=== PATIENT | male | born 1945 | race Caucasian/White ===

== ENCOUNTER → 2016-10-06 | Outpatient (CLI) | payer MEDICARE ==
[~2016-10-06] MED LIST: /ADVA50050 INH; /TAMS4CA PO; ACET65TA PO; ALLO300T; ALLO300T PO; AMLO10TA2 PO; ASPI325T; ATEN50TA2; ATEN50TA2 PO; COLA100C2; COLA100C2 PO; COZA100T2 PO; DIOV160T5; DIOV80TA PO; ECOT325T5 PO; FENO160T10 PO; FISH1000 PO; GEMF600T PO; GLYB2.5T6; GLYB2.5T6 PO; HYDR25TA6; HYDROCODONE; LEVIMIR FLEX PEN SC; LIPI10TA; MULTIVIT PO; PERC7.5T8 PO; PIOG15TA2 PO; SIMV40TA2 PO; SING10TA31; SING10TA31 PO; THERGRAN; VICODINES TAB; VITA10002 PO; VITAMIN D PO
[2016-10-06 07:54] LABS: MEAN CORPUSCULAR HEMOGLOBIN 28.5 pg (27.0-33.0); MEAN CORPUSCULAR HGB CONC 32.7 g/dl (32.0-36.5); MEAN CORPUSCULAR VOLUME 87.4 fl (80.0-96.0); RED CELL DISTRIBUTION WIDTH 14.4 % (11.5-14.5); WHITE BLOOD COUNT 7.4 K/mm3 (4.0-10.0)
[2016-10-06 08:11] LABS: ALBUMIN 3.7 GM/DL (3.2-5.2); ALBUMIN/GLOBULIN RATIO 1.54 (1.00-1.93); BILIRUBIN,TOTAL 0.3 MG/DL (0.2-1.0); CREATININE FOR GFR 2.04 MG/DL (0.70-1.30); GLOMERULAR FILTRATION RATE 34.4 (>42); POTASSIUM SERUM 4.4 MEQ/L (3.5-5.1); TOTAL PROTEIN 6.1 GM/DL (6.4-8.2)
== END ==
LOC: M LAB 06:35
PROVIDERS: ATTEND Family Medicine
DX: I10 Essential (primary) hypertension (principal); E11.9 Type 2 diabetes mellitus without complications; R53.83 Other fatigue

== ENCOUNTER → 2017-01-29 | Outpatient (CLI) | payer MEDICARE ==
--- NOTE | 2017-01-29 12:03 | REP ---
RENAL AND BLADDER ULTRASOUND: Real-time sonographic evaluation of the left kidney performed in this patient who has had a prior right nephrectomy. Left kidney measures 14.0 x 5.5 x 7.1 cm. There is no hydronephrosis. No renal mass is seen. Urinary bladder is mildly distended and grossly unremarkable. Prostate measures 5.7 x 3.8 x 5.3 cm. IMPRESSION: Unremarkable appearance of left kidney status post right nephrectomy. Signed by Cal Pereyra MD 01/29/2017 03:30 P
== END ==
LOC: M RAD 10:06
PROVIDERS: ATTEND Internal Medicine Nephrology
DX: Z90.5 Acquired absence of kidney (principal); N18.4 Chronic kidney disease, stage 4 (severe)

== ENCOUNTER → 2017-02-25 | Outpatient (REF) | payer MEDICARE | LOC: M LAB REF 12:58 | PROVIDERS: ATTEND Internal Medicine Nephrology | DX: R80.1 Persistent proteinuria, unspecified (principal) ==

== ENCOUNTER → 2017-04-20 | Outpatient (CLI) | payer MEDICARE ==
--- NOTE | 2017-04-20 10:45 | REP ---
Chest two views HISTORY: COPD Comparison: 12/05/2015 The lungs are clear. The heart is normal in size. The pulmonary vasculature is normal in appearance. Degenerative change is present in the thoracic spine. IMPRESSION: No acute disease. Signed by Saman Champion MD 04/20/2017 10:36 A
== END ==
LOC: M RAD 09:27
PROVIDERS: ATTEND Family Medicine
DX: J44.9 Chronic obstructive pulmonary disease, unspecified (principal); J18.9 Pneumonia, unspecified organism

== ENCOUNTER 2017-06-06 14:14 | Emergency (ER) | payer MEDICARE ==
[~2017-06-06] VITALS: Ht 182.9 cm; Wt 118.2 kg
[2017-06-06 14:43] LABS: BASO % 0.2 % (0.0-1.0); EOS # 0.3 10^3/uL (0.0-0.50); EOS % 3.9 % (0.0-3.0); IMMATURE GRANULOCYTE % 0.5 % (0-0); LYMPH # 1.2 10^3/uL (1.5-4.5); LYMPH % 14.3 % (24.0-44.0); MEAN CORPUSCULAR HEMOGLOBIN 28.9 pg (27.0-33.0); MEAN CORPUSCULAR HGB CONC 32.9 g/dl (32.0-36.5); MEAN CORPUSCULAR VOLUME 87.9 fl (80.0-96.0); MONO # 0.6 10^3/uL (0.0-0.8); NEUTROPHILS % 74.1 % (36.0-66.0); PLATELET COUNT, AUTOMATED 202 10^3/uL (150-450); RED CELL DISTRIBUTION WIDTH 13.7 % (11.5-14.5); WHITE BLOOD COUNT 8.1 10^3/uL (4.0-10.0)
[2017-06-06 14:59] LABS: INR 0.91
[2017-06-06 15:10] LABS: ALBUMIN 3.3 GM/DL (3.2-5.2); ALBUMIN/GLOBULIN RATIO 1.27 (1.00-1.93); ALKALINE PHOSPHATASE 82 U/L (45-117); ALT/SGPT 25 U/L (12-78); ANION GAP 9 MEQ/L (8-16); AST/SGOT 26 U/L (7-37); BILIRUBIN,DIRECT < 0.1 MG/DL (0.0-0.2); BILIRUBIN,TOTAL 0.2 MG/DL (0.2-1.0); BLOOD UREA NITROGEN 40 MG/DL (7-18); CALCIUM LEVEL 8.6 MG/DL (8.8-10.2); CARBON DIOXIDE LEVEL 23 MEQ/L (21-32); CHLORIDE LEVEL 111 MEQ/L (98-107); CREATININE FOR GFR 2.46 MG/DL (0.70-1.30); GLOMERULAR FILTRATION RATE 27.8 (>42); GLUCOSE, FASTING 230 MG/DL (83-110); POTASSIUM SERUM 4.6 MEQ/L (3.5-5.1); SODIUM LEVEL 143 MEQ/L (136-145); TOTAL PROTEIN 5.9 GM/DL (6.4-8.2)
--- NOTE | 2017-06-06 15:11 | REP ---
Chest one-view HISTORY: Chest pain Comparison: 04/20/2017 The lungs are clear. The heart is normal in size. The pulmonary vasculature is normal in appearance. Impression: No acute disease. Signed by Saman Champion MD 06/06/2017 03:03 P
--- NOTE | 2017-06-06 18:13 | ECGEPIP ---
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
[2017-06-06 22:35] VITALS: BP 148/76
--- NOTE | 2017-06-07 09:31 | ECGEPIP ---
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
== END 2017-06-06 22:51 | disposition home or self-care (01) ==
LOC: M ED 14:14
DX: R07.89 Other chest pain (principal); I44.0 Atrioventricular block, first degree; R94.31 Abnormal electrocardiogram [ECG] [EKG]; E11.9 Type 2 diabetes mellitus without complications; I10 Essential (primary) hypertension; N28.9 Disorder of kidney and ureter, unspecified; Z95.5 Presence of coronary angioplasty implant and graft; F17.200 Nicotine dependence, unspecified, uncomplicated; Z79.899 Other long term (current) drug therapy; Z88.8 Allergy status to other drugs, medicaments and biological substances

== ENCOUNTER → 2017-09-30 | Outpatient (CLI) | payer MEDICARE ==
[2017-09-30 06:58] LABS: HEMATOCRIT 36.7 % (42.0-52.0); HEMOGLOBIN 11.9 g/dl (14.0-18.0); MEAN CORPUSCULAR HEMOGLOBIN 28.5 pg (27.0-33.0); MEAN CORPUSCULAR HGB CONC 32.4 g/dl (32.0-36.5); PLATELET COUNT, AUTOMATED 188 10^3/uL (150-450); RED BLOOD COUNT 4.17 10^6/uL (4.30-6.10); RED CELL DISTRIBUTION WIDTH 14.2 % (11.5-14.5); WHITE BLOOD COUNT 8.4 10^3/uL (4.0-10.0)
[2017-09-30 07:10] LABS: ESTIMATED AVERAGE GLUCOSE 232 MG/DL (60-110); HEMOGLOBIN A1c 9.7 %
[2017-09-30 07:32] LABS: ALBUMIN 3.3 GM/DL (3.2-5.2); ALBUMIN/GLOBULIN RATIO 1.27 (1.00-1.93); ALKALINE PHOSPHATASE 62 U/L (45-117); ALT/SGPT 21 U/L (12-78); ANION GAP 6 MEQ/L (8-16); AST/SGOT 24 U/L (7-37); BILIRUBIN,TOTAL 0.5 MG/DL (0.2-1.0); BLOOD UREA NITROGEN 37 MG/DL (7-18); CALCIUM LEVEL 8.7 MG/DL (8.8-10.2); CARBON DIOXIDE LEVEL 24 MEQ/L (21-32); CHLORIDE LEVEL 114 MEQ/L (98-107); CHOLESTEROL LEVEL 150 MG/DL (<200); CHOLESTEROL RISK RATIO 4.687 (<5); CREATININE FOR GFR 2.26 MG/DL (0.70-1.30); GLOMERULAR FILTRATION RATE 30.5 (>42); GLUCOSE, FASTING 121 MG/DL (70-100); HDL CHOLESTEROL 32 MG/DL (>40); IRON (FE) 52 UG/DL (65-175); LDL CHOLESTEROL 69.6 MG/DL (<100); NON-HDL-C 118 MG/DL; PERCENT SATURATION 15.3 % (19.7-50.0); POTASSIUM SERUM 4.6 MEQ/L (3.5-5.1); PROSTATIC SPECIFIC AG MONITOR 3.26 NG/ML (< 4.0); SODIUM LEVEL 144 MEQ/L (136-145); TOTAL IRON BINDING CAPACITY 339 UG/DL (250-450); TOTAL PROTEIN 5.9 GM/DL (6.4-8.2); TRIGLYCERIDES LEVEL 242 MG/DL (<150)
[2017-09-30 10:21] LABS: TESTOSTERONE 254 NG/DL (241-827)
== END ==
LOC: M LAB 06:00
DX: I10 Essential (primary) hypertension (principal); Z79.899 Other long term (current) drug therapy
CPT/HCPCS: 83550

== ENCOUNTER 2017-12-15 15:03 | Emergency (ER) | payer OTHER, MEDICARE ==
[2017-12-15 16:49] LABS: BASO % 0.3 % (0.0-1.0); EOS # 0.5 10^3/uL (0.0-0.50); EOS % 4.1 % (0.0-3.0); HEMATOCRIT 40.6 % (42.0-52.0); HEMOGLOBIN 12.9 g/dl (13.5-17.5); IMMATURE GRANULOCYTE % 0.4 % (0-3.0); LYMPH # 1.2 10^3/uL (1.5-4.5); LYMPH % 10.5 % (24.0-44.0); MEAN CORPUSCULAR HEMOGLOBIN 28.5 pg (27.0-33.0); MEAN CORPUSCULAR HGB CONC 31.8 g/dl (32.0-36.5); MEAN CORPUSCULAR VOLUME 89.6 fl (80.0-96.0); MONO # 0.9 10^3/uL (0.0-0.8); MONO % 7.8 % (0.0-5.0); NEUTROPHILS # 8.7 10^3/uL (1.8-7.7); NEUTROPHILS % 76.9 % (36.0-66.0); PLATELET COUNT, AUTOMATED 214 10^3/uL (150-450); RED BLOOD COUNT 4.53 10^6/uL (4.30-6.10); RED CELL DISTRIBUTION WIDTH 14.4 % (11.5-14.5); WHITE BLOOD COUNT 11.3 10^3/uL (4.0-10.0)
[2017-12-15 16:52] LABS: KETONE, URINE AUTO RFX NEGATIVE (NEGATIVE); LEUKOCYTE ESTERASE UR AUTO RFX NEGATIVE (NEGATIVE); NITRITE, URINE AUTO RFX NEGATIVE (NEGATIVE); RBC, URINE AUTO RFX 1 /HPF (0-3); SPECIFIC GRAVITY UR AUTO RFX 1.011 (1.002-1.035); SQUAM EPITHELIAL CELL UR AURFX 0 /HPF (0-6); WBC, URINE AUTO RFX 2 /HPF (0-3)
[2017-12-15] MEDS: BACLOFEN 10 MG TAB PO (16:57)
[2017-12-15] MEDS: MORPHINE 4 MG/ML 1ML VIAL/SYRINGE (J2270) IV (16:58)
[2017-12-15] MEDS ORDERED: ISOVUE-370 76% 100ML VIAL (Q9967) As Ordered (17:13)
[2017-12-15 17:14] LABS: ALBUMIN 3.9 GM/DL (3.2-5.2); ALBUMIN/GLOBULIN RATIO 1.39 (1.00-1.93); ALKALINE PHOSPHATASE 57 U/L (45-117); ALT/SGPT 24 U/L (12-78); ANION GAP 8 MEQ/L (8-16); AST/SGOT 26 U/L (7-37); BILIRUBIN,DIRECT 0.1 MG/DL (0.0-0.2); BILIRUBIN,TOTAL 0.3 MG/DL (0.2-1.0); BLOOD UREA NITROGEN 53 MG/DL (7-18); CALCIUM LEVEL 9.3 MG/DL (8.8-10.2); CARBON DIOXIDE LEVEL 28 MEQ/L (21-32); CHLORIDE LEVEL 108 MEQ/L (98-107); CREATININE FOR GFR 3.42 MG/DL (0.70-1.30); GLOMERULAR FILTRATION RATE 18.9 (>42); GLUCOSE, FASTING 161 MG/DL (70-100); LIPASE 350 U/L (73-393); POTASSIUM SERUM 4.8 MEQ/L (3.5-5.1); SODIUM LEVEL 144 MEQ/L (136-145); TOTAL PROTEIN 6.7 GM/DL (6.4-8.2)
== END 2017-12-15 19:48 | disposition home or self-care (01) ==
LOC: M ED 15:03
DX: N17.9 Acute kidney failure, unspecified (principal); M54.5 Low back pain; G89.29 Other chronic pain; E11.9 Type 2 diabetes mellitus without complications; J44.9 Chronic obstructive pulmonary disease, unspecified; I25.2 Old myocardial infarction; I10 Essential (primary) hypertension; E78.5 Hyperlipidemia, unspecified; F17.210 Nicotine dependence, cigarettes, uncomplicated; Z79.01 Long term (current) use of anticoagulants; Z95.5 Presence of coronary angioplasty implant and graft; Z88.8 Allergy status to other drugs, medicaments and biological substances; Z98.890 Other specified postprocedural states; Z90.89 Acquired absence of other organs; Z79.899 Other long term (current) drug therapy
CPT/HCPCS: J2270

== ENCOUNTER → 2017-12-21 | Outpatient (CLI) | payer MEDICARE | LOC: M RAD 09:22 | DX: M54.30 Sciatica, unspecified side (principal) | CPT/HCPCS: 72110 ==

== ENCOUNTER → 2018-06-30 | Outpatient (CLI) | payer MEDICARE ==
[~2018-06-30] MED LIST changes: +BACL10TA2 PO; +CLOP75TA2 PO
[2018-06-30 07:00] LABS: HEMATOCRIT 39.5 % (42.0-52.0); HEMOGLOBIN 12.6 g/dl (13.5-17.5); MEAN CORPUSCULAR HEMOGLOBIN 28.6 pg (27.0-33.0); MEAN CORPUSCULAR HGB CONC 31.9 g/dl (32.0-36.5); MEAN CORPUSCULAR VOLUME 89.8 fl (80.0-96.0); PLATELET COUNT, AUTOMATED 185 10^3/uL (150-450); WHITE BLOOD COUNT 7.5 10^3/uL (4.0-10.0)
[2018-06-30 07:29] LABS: ALBUMIN 3.6 GM/DL (3.2-5.2); ALT/SGPT 23 U/L (12-78); BILIRUBIN,TOTAL 0.4 MG/DL (0.2-1.0); BLOOD UREA NITROGEN 39 MG/DL (7-18); CARBON DIOXIDE LEVEL 24 MEQ/L (21-32); CHLORIDE LEVEL 110 MEQ/L (98-107); CHOLESTEROL LEVEL 173 MG/DL (<200); CHOLESTEROL RISK RATIO 6.653 (<5); GLOMERULAR FILTRATION RATE 28.4 (>42); GLUCOSE, FASTING 201 MG/DL (70-100); HDL CHOLESTEROL 26 MG/DL (>40); NON-HDL-C 147 MG/DL; POTASSIUM SERUM 4.2 MEQ/L (3.5-5.1); PROSTATIC SPECIFIC AG MONITOR 4.09 NG/ML (< 4.00); SODIUM LEVEL 144 MEQ/L (136-145); TOTAL PROTEIN 6.3 GM/DL (6.4-8.2); TRIGLYCERIDES LEVEL 446 MG/DL (<150)
[2018-06-30 07:34] LABS: TESTOSTERONE 219 NG/DL (241-827); TOTAL 25(OH) VITAMIN D 22.7 NG/ML (30.0-100.0)
== END ==
LOC: M LAB 06:17
PROVIDERS: ATTEND Family Medicine
DX: I10 Essential (primary) hypertension (principal); E11.9 Type 2 diabetes mellitus without complications; R53.83 Other fatigue; E03.9 Hypothyroidism, unspecified

== ENCOUNTER 2019-03-30 08:01 | Day surgery (SDC) | payer MEDICARE ==
[~2019-03-30] VITALS: Ht 185.4 cm; Wt 106.6 kg
[~2019-03-30 08:01] MED LIST changes: -/ADVA50050 INH; -/TAMS4CA PO; +ADVA1AER2 INH; +ALBU83IN INH; +ALLO10TA PO; +ALPH600C PO; +AMLO10TA5 PO; +BASA100I SC; +COLA100C5 PO; +DOXA1TAB41 PO; +ECOT81TA5 PO; +FENO145T13 PO; +FERR325T20 PO; +FLOM0.4C39 PO; +GLYB5TA PO; +NITR0.4S14 SL; +NOVOINJ3 SC; +NS 1,000 ML IV ONE; +PROPOFOL 200 MG/20 ML VIAL As Ordered ONE; +PURE500C5 PO; +ROSU40TA4 PO; +SING5CHW23 PO; +SPIR1CAP INH; +SYMB16INH INH; +TIZA4CAP6 PO; +TORS20TA2 PO; +VITA-172 PO; +ZINC220CA PO
[2019-03-30] MEDS ORDERED: LIDOCAINE 2% INJ 100 MG/5 ML SDV (FOR ANES.) As Ordered ONE (08:42)
[2019-03-30] MEDS ORDERED: D5W/0.2% SODIUM CHLORIDE 1,000 ML IV ONE (09:00)
[2019-03-30] MEDS ORDERED: PROPOFOL 200 MG/20 ML VIAL As Ordered ONE ×3 (09:42→10:24)
--- NOTE | 2019-03-30 10:37 | ROOR ---
Patient Name: Tristen Roche Procedure Date: 03/30/2019 9:29 AM Date of : 1945 Age: 73 Room: [facility] Gender: Male Note Status: Finalized Procedure: Colonoscopy Indications: Screening for colorectal malignant neoplasm, Last colonoscopy: June 2008 Providers: Quinton Davila MD Referring MD: JEREMY TOURE MD Requesting Provider: Medicines: Monitored Anesthesia Care Complications: No immediate complications. Procedure: Pre-Anesthesia Assessment: - Prior to the procedure, a History and Physical was performed, and patient medications and allergies were reviewed. The patient is competent. The risks and benefits of the procedure and the sedation options and risks were discussed with the patient. All questions were answered and informed consent was obtained. Patient identification and proposed procedure were verified by the physician, the nurse and the anesthesiologist in the procedure room. Mental Status Examination: alert and oriented. CV Examination: regular rate and rhythm. Prophylactic Antibiotics: The patient does not require prophylactic antibiotics. Prior Anticoagulants: The patient has taken no previous anticoagulant or antiplatelet agents. ASA Grade Assessment: III - A patient with severe systemic disease. After reviewing the risks and benefits, the patient was deemed in satisfactory condition to undergo the procedure. The anesthesia plan was to use monitored anesthesia care (MAC). Immediately prior to administration of medications, the patient was re-assessed for adequacy to receive sedatives. The heart rate, respiratory rate, oxygen saturations, blood pressure, adequacy of pulmonary ventilation, and response to care were monitored throughout the procedure. The physical status of the patient was re-assessed after the procedure. The Colonoscope was introduced through the anus and advanced to the cecum, identified by appendiceal orifice and ileocecal valve. The colonoscopy was somewhat difficult due to a tortuous colon. The patient tolerated the procedure well. The quality of the bowel preparation was good. Findings: The perianal exam findings include non-thrombosed external hemorrhoids. Two sessile polyps were found in the cecum. The polyps were small in size. These polyps were removed with a jumbo cold forceps. Resection and retrieval were complete. Three sessile polyps were found in the hepatic flexure. The polyps were 4 to 7 mm in size. These polyps were removed with a hot snare. Resection and retrieval were complete. Seven sessile polyps were found in the transverse colon. The polyps were 4 to 7 mm in size. These polyps were removed with a hot snare. Resection and retrieval were complete. Impression: - Non-thrombosed external hemorrhoids found on perianal exam. - Two small polyps in the cecum, removed with a jumbo cold forceps. Resected and retrieved. - Three 4 to 7 mm polyps at the hepatic flexure, removed with a hot snare. Resected and retrieved. - Seven 4 to 7 mm polyps in the transverse colon, removed with a hot snare. Resected and retrieved. Recommendation: - Discharge patient to home. - Resume previous diet. - Continue present medications. - Await pathology results. - Repeat colonoscopy in 3 years for surveillance. Quinton Davila MD Quinton Davila MD 03/30/2019 10:37:11 AM Electronically signed by Quinton Davila MD Number of Addenda: 0 Note Initiated On: 03/30/2019 9:29 AM Estimated Blood Loss: Estimated blood loss: none.
[2019-03-30 10:50] VITALS: BP 136/70
== END 2019-03-30 11:12 | disposition home or self-care (01) ==
LOC: M OPP 08:01
PROVIDERS: ATTEND Surgery
DX: Z12.11 Encounter for screening for malignant neoplasm of colon (principal); K64.4 Residual hemorrhoidal skin tags; D12.0 Benign neoplasm of cecum; D12.3 Benign neoplasm of transverse colon; I25.2 Old myocardial infarction; I25.10 Atherosclerotic heart disease of native coronary artery without angina pectoris; G47.30 Sleep apnea, unspecified; N18.4 Chronic kidney disease, stage 4 (severe); F17.210 Nicotine dependence, cigarettes, uncomplicated; Z79.4 Long term (current) use of insulin; Z79.899 Other long term (current) drug therapy; Z88.1 Allergy status to other antibiotic agents; Z88.8 Allergy status to other drugs, medicaments and biological substances; Z91.040 Latex allergy status; Z85.528 Personal history of other malignant neoplasm of kidney; Z95.5 Presence of coronary angioplasty implant and graft

== ENCOUNTER → 2019-06-09 | Outpatient (CLI) | payer MEDICARE ==
[~2019-06-09] MED LIST changes: -NS 1,000 ML IV ONE; -PROPOFOL 200 MG/20 ML VIAL As Ordered ONE
--- NOTE | 2019-06-09 09:17 | REP ---
BILATERAL UPPER EXTREMITY DUPLEX DOPPLER ULTRASOUND ARTERIES AND VEINS FOR ARTERIOVENOUS FISTULA MAPPING: Real-time ultrasound evaluation and duplex Doppler interrogation of bilateral upper extremity arterial and venous systems is performed for arteriovenous fistula mapping. No deep vein thrombosis is seen bilaterally. On the right, the basilic vein measures 5 mm throughout the level of the humerus and 3 mm throughout the forearm. Median cubital vein measures 4 mm. Right cephalic vein measures 5 mm at the upper humerus, 4 mm at the lower humerus, and 3 mm throughout the forearm. Right upper extremity arterial structures demonstrate normal flow velocities with triphasic waveforms. Right axillary artery measures 8 mm, brachial artery, 6 mm, and radial and ulnar arteries 3 mm. On the left, basilic vein measures 4 mm at the upper humerus, 3 mm at the lower humerus, and 2 mm throughout the forearm. Medial cubital vein measures 3 mm. The left cephalic vein measures 3 mm throughout the level of the humerus as well as in the upper forearm and 2 mm in the lower forearm and wrist. Doppler extremity arterial structures demonstrate normal flow velocities and triphasic waveforms. Left axillary artery measures 8 mm, brachial artery 5 mm and radial and ulnar arteries 2 mm. Electronically Signed by Cal Pereyra MD 06/09/2019 03:50 P
== END ==
LOC: M RAD 07:28
PROVIDERS: ATTEND Internal Medicine Nephrology
DX: N18.4 Chronic kidney disease, stage 4 (severe) (principal)

== ENCOUNTER → 2019-07-19 | Outpatient (CLI) | payer MEDICARE ==
[~2019-07-19] MED LIST changes: -FENO145T13 PO; +FENO145T7 PO; +ZYLO300T6 PO
[2019-07-19 10:16] LABS: ALBUMIN 3.9 GM/DL (3.2-5.2); ALT/SGPT 49 U/L (12-78); BILIRUBIN,DIRECT 0.2 MG/DL (0.0-0.2); BILIRUBIN,TOTAL 0.4 MG/DL (0.2-1.0); CHOLESTEROL LEVEL 146 MG/DL (<200); CHOLESTEROL RISK RATIO 6.636 (<5); HDL CHOLESTEROL 22 MG/DL (>40); NON-HDL-C 124 MG/DL; TOTAL PROTEIN 6.7 GM/DL (6.4-8.2); TRIGLYCERIDES LEVEL 489 MG/DL (<150)
== END ==
LOC: M LAB 09:04
PROVIDERS: ATTEND Physician Assistant
DX: E78.2 Mixed hyperlipidemia (principal)

== ENCOUNTER 2019-07-26 09:56 | Day surgery (SDC) | payer MEDICARE ==
--- NOTE | 2019-07-18 18:29 | HPE ---
DATE OF SCHEDULED ADMISSION: 07/26/2019 This is a preoperative history and physical for surgery planned for 07/26/2019. CHIEF COMPLAINT: Dialysis access. HISTORY OF THE PRESENT ILLNESS: Mr. Roche is a very pleasant 74-year-old patient with stage IV renal insufficiency, not yet on dialysis. Dr. Batres has asked that we discuss options for dialysis access plan. The patient underwent vein mapping that revealed left upper extremity veins too small for dialysis access. On the right, the patient has a suitable cephalic or basilic vein in the upper arm. The cephalic vein measures 4.2 mm and 4.8 mm in the upper arm, the basilic vein measures 5.2 mm and 5.4 mm in the upper arm. The median cubital vein is 3.8 mm. The arterial structures have excellent flow with triphasic flow in the brachial artery, which is 6.2 mm. These are all good size with good flow for dialysis access creation. He has a bounding pulse at the radial artery on the right, and a triphasic signal over the palmar arch. The patient has a scar on his right shoulder and says that he has had shoulder surgery. Therefore, I examined his cephalic vein with ultrasound in the clinic and found that it is in continuation across to the chest, and I do not see that it has been transected with shoulder surgery. He is right-handed but I feel he will have a more successful fistula with access in the right upper extremity. I gave him a squeeze ball today to start working on his strength in the right upper extremity, and he should use the squeeze ball as much as he can remember during the day to improve his circulation. The risks, benefits and alternatives to right brachiocephalic arteriovenous (AV) fistula creation were explained to the patient, and he is agreeable to proceed. Informed consent was obtained. We also had a lengthy discussion about smoking cessation, and we strongly encouraged the patient to quit smoking. MEDICATIONS: - albuterol as needed - allopurinol 300 mg daily - alpha lipoic acid 200 mg daily - aspirin 81 mg daily - atenolol 50 mg daily - Colace 100 mg daily - doxazosin 2 mg daily - fenofibrate 160 mg twice a day - FeroSul 325 mg twice a day - glyburide 5 mg three tablets daily - montelukast 10 mg daily - nitroglycerin 0.4 mg sublingual as needed - Norvasc 10 mg daily - Plavix 75 mg daily - rosuvastatin 40 mg daily - Spiriva 18 mcg daily - Symbicort two puffs twice a day - tamsulosin 0.4 mg twice a day - torsemide 20 mg daily - vitamin B12 500 mcg daily - vitamin C 500 mg daily - vitamin D 1000 units daily - zinc sulfate 220 mg daily ALLERGIES: FLEXERIL and BACLOFEN. PAST MEDICAL HISTORY: Hypertension. Rlh-pdugnax-mqoxchyxr diabetes. History of myocardial infarction ([place]). Hypercholesterolemia. Kidney cancer on the right. Renal disease, stage IV insufficiency. Heart disease. SURGICAL HISTORY: Bilateral shoulder surgery. Hemorrhoidectomy. Right nephrectomy. Cardiac stents. FAMILY HISTORY: Diabetes, hypertension, heart disease. SOCIAL HISTORY: The patient has a 30 pack-year history of tobacco. Denies illicit drug use. REVIEW OF SYSTEMS: Constitutional: Denies fevers, chills, weight loss or weight gain. Eyes: Denies new vision changes. Ear, Nose, Mouth and Throat: Denies hearing loss. Denies congestion. Denies dysphagia. Cardiovascular: Denies chest pain and palpitations. Respiratory: Reports shortness of breath but denies cough and hemoptysis. Gastrointestinal (GI): Denies abdominal pain, constipation, diarrhea, nausea or vomiting. Musculoskeletal: Reports gout but denies myalgia, pain and trouble walking. Skin: Denies skin cancer, rash and wound. Neurologic: Denies focal deficits, headache or seizures. Psychiatric: Denies anxiety or depression. Endocrine: Reports diabetes but denies hyperthyroidism, hypothyroidism. Hematology: Denies anemia or excessive bruising. PHYSICAL EXAMINATION: The patient is afebrile. Vital signs are stable, mildly hypertensive at 160/84. Constitutional: He appears medically stable with no signs of distress. Head and Face: Normal on inspection. Ears, Nose, Mouth and Throat: Tympanic membranes intact. External nose within normal limits. Neck: Supple. No carotid bruits. Respiratory: No wheezing, clear to auscultation bilaterally. Cardiovascular: Regular rate and rhythm. Abdomen: Bowel sounds are positive. Abdomen is soft, nontender, nondistended. Lymph: No palpable lymphadenopathy. Musculoskeletal: His gait is steady. Distal pulses 2+ dorsalis pedis (DP), posterior tibial (PT). Right radial pulse is 2+ and bounding, triphasic signal Doppler over the palmar arch. Brachial pulse is 2+ and bounding. There is a scar noted on the patient's right shoulder, but on ultrasound, the cephalic vein appears to be intact, going towards the subclavian vein junction. Skin: No rashes or lesions. Neurologic: Alert and oriented times three. Moves all extremities equally. No focal neurologic deficits noted. Psychiatric: Pleasant and cooperative. IMAGING: Patient's vein mapping was reviewed with him in the clinic. Please see history of the present illness for relevant interpretation. ASSESSMENT AND PLAN: This is a very pleasant 74-year-old patient with stage IV renal insufficiency, not yet on dialysis but progressing to stage V and requiring new AV access creation for imminent dialysis use. 1. Plan for right brachiocephalic AV fistula creation. Hold Plavix 3 days prior to the procedure, and we will restart it directly after. Do not hold aspirin. 2. Continue to use squeeze ball daily to improve circulation in the right upper ext before and after surgery. 3. We strongly encourage the patient to quit smoking. We appreciate the opportunity to participate in the care of this patient.
[~2019-07-26] VITALS: Ht 177.8 cm; Wt 107.4 kg
[~2019-07-26 09:56] MED LIST changes: +D5W/0.2% SODIUM CHLORIDE 1,000 ML IV ONE; +ceFAZolin SOD 2 GM in IV 1 EA IV ONE
[2019-07-26] MEDS ORDERED: EPINEPHrine INJ 1 MG/ML 1ML VIAL ONE (09:57)
[2019-07-26] MEDS ORDERED: ROPIvacaine 0.5% 30 ML INJECTION (J2795 PER 1MG) ONE (09:57)
[2019-07-26] MEDS ORDERED: HEPARIN SOD (PORCINE) 5000 UNITS/ML VIAL As Ordered ONE (09:58)
[2019-07-26 11:03] LABS: ALBUMIN 3.9 GM/DL (3.2-5.2); BILIRUBIN,TOTAL 0.5 MG/DL (0.2-1.0); CALCIUM LEVEL 9.2 MG/DL (8.8-10.2); CREATININE FOR GFR 3.53 MG/DL (0.70-1.30); GLOMERULAR FILTRATION RATE 18.1 (>42); POTASSIUM SERUM 4.3 MEQ/L (3.5-5.1)
[2019-07-26] MEDS ORDERED: MIDAZOLAM INJ 2 MG/2 ML VIAL (J2250) As Ordered ONE ×2 (11:30→12:12)
[2019-07-26] MEDS ORDERED: fentaNYL 100 MCG/2 ML INJECTION (J3010) As Ordered ONE ×2 (11:30→12:12)
[2019-07-26] MEDS ORDERED: propofoL 500 MG/50 ML VIAL As Ordered ONE (11:31)
[2019-07-26] MEDS ORDERED: LIDOCAINE 2% INJ 100 MG/5 ML SDV (FOR ANES.) As Ordered ONE (11:34)
[2019-07-26] MEDS ORDERED: ONDANSETRON 4MG/2ML VIAL (J2405) As Ordered ONE (11:35)
[2019-07-26] MEDS ORDERED: DEXTROSE 50% 50 ML SYRINGE As Ordered ONE (12:06)
[2019-07-26] MEDS: fentaNYL 100 MCG/2 ML INJECTION (J3010) IV ONE (12:28)
[2019-07-26] MEDS ORDERED: LIDOCAINE 1% SDV INJ 30 ML VIAL As Ordered ONE (12:29)
[2019-07-26] MEDS ORDERED: MIDAZOLAM INJ 2 MG/2 ML VIAL (J2250) IV ONE (13:00)
[2019-07-26] MEDS ORDERED: KETAMINE HCL 200 MG/20 ML VIAL As Ordered ONE (13:07)
[2019-07-26] MEDS ORDERED: OXYC1TAB23 PO (14:29)
--- NOTE | 2019-07-26 14:34 | ROOPDOC ---
[facility] Report Of Operation Report of Operation DATE OF PROCEDURE: 07/26/19 PREPROCEDURE DIAGNOSES: Renal insufficiency requiring access for future dialysis POSTPROCEDURE DIAGNOSES: Same PROCEDURE: Right brachial cephalic AV Fistula Creation SURGEON: Amber Sneed MD ANESTHESIA: MAC, scalene nerve block, local anesthesia. INDICATION FOR PROCEDURE: Mr. Roche is a very pleasant 74-year-old gentleman not yet on dialysis requires access for eminent dialysis in the future. Risk benefits and alternatives to a right upper extremity brachiocephalic AV fistula creation were discussed with the patient and he is agreeable to proceed. Informed consent was obtained. REPORT OF OPERATION: The patient was brought to the operating room in stable condition after right scalene block was placed by our anesthesia colleagues in preop holding. Monitored anesthesia care and antibiotics were administered without complication. His right upper extremity was prepped and draped in a sterile fashion. A timeout was performed. Local anesthesia was administered to skin and subcutaneous tissue over the brachial artery pulse 1 cm distal to the antecubital crease. A transverse incision was made and carried down to the subcutaneous tissue with Bovie cautery. The basilic and cephalic veins are very large and easily identified. We skeletonized the cephalic vein proximally and distally within the incision and proximal branches were ligated. Distally, there were extensive branches and these were sequentially suture ligated. The median cubital vein was tied off on the cephalic and basilic side, clips were placed and the vein was divided. We then proceeded with dissection down to the brachial artery through the fascia. The artery was skeletonized proximally and distally within the incision and Vesseloops were placed on the brachial artery, the radial artery, and the ulnar artery. The distal cephalic vein was ligated at the sutures and a distal branch point was connected to make a large patch for anastomosis. A bulldog clamp was placed for hemostasis on the vein. We then selected a 4 mm, 4.5 mm, and 5 mm dilator and each were sequentially passed into the vein without difficulty. The vein was then flushed with heparinized saline. We then secured the Vesseloops on the proximal brachial artery, the radial artery and the ulnar artery. A 5 mm arteriotomy was made and the vein was anastomosis to the artery and an end-to-side fashion with a running 6-0 Prolene suture. Before the final sutures are placed, we flushed inflow and outflow arteries and the vein and irrigated with heparinized saline. We placed the final sutures and restore flow through the vein and the inflow artery, and after a few beats of the heart were restored blood flow to the hand. There was a strong radial pulse and a triphasic signal at the palmar arch in the hand was warm and pink. There is a good thrill over the fistula with no signs of outflow obstruction. We irrigated with copious amounts of saline. The deep tissue was approximated with interrupted Vicryl suture. The dermal layer was closed with running Vicryl suture. The skin was closed with a running subcuticular Monocryl suture. Mastisol and Steri-Strips were placed the length of the wound and a dry gauze and Tegaderm was placed as a final dressing. The sling was placed to protect the arm until the nerve block wears off and the patient has resolution of his motor and sensory function back to baseline. He was taken to recovery in stable condition. ESTIMATED BLOOD LOSS: Approximately 10 mL. COMPLICATIONS: None. PLAN: Continue to use squeeze ball to improve RUE circulation. Ok to restart home meds including plavix and anticoagulation. Resume pre-op diet. Continue steri strips for at least 7 days to help with wound healing. Ok to d/c sling when sensory and motor function return to baseline. No driving 5 days. Rx for Percocet sent to [facility] per family request. Follow up in 1-2 weeks to check thrill and incision. AMBER SNEED MD Jul 26, 2019 14:34
[2019-07-26] MEDS ORDERED: ONDANSETRON 4MG/2ML VIAL (J2405) IV PRN (15:00)
[2019-07-26] MEDS ORDERED: NS 1,000 ML IV SCH (15:00)
[2019-07-26] MEDS ORDERED: oxyCODONE 5MG TAB PO PRN (15:00)
[2019-07-26 15:20] VITALS: BP 129/59
[2019-07-26] MEDS ORDERED: DEXTROSE 50% 50 ML SYRINGE IV ONE (18:00)
== END 2019-07-26 15:50 | disposition home or self-care (01) ==
LOC: M SDC 09:56
PROVIDERS: ATTEND Surgery Vascular Surgery
DX: N18.4 Chronic kidney disease, stage 4 (severe) (principal); I12.9 Hypertensive chronic kidney disease with stage 1 through stage 4 chronic kidney disease, or unspecified chronic kidney disease; E11.22 Type 2 diabetes mellitus with diabetic chronic kidney disease; E11.40 Type 2 diabetes mellitus with diabetic neuropathy, unspecified; N25.81 Secondary hyperparathyroidism of renal origin; M1A.30X0 Chronic gout due to renal impairment, unspecified site, without tophus (tophi); I25.2 Old myocardial infarction; E78.00 Pure hypercholesterolemia, unspecified; I25.10 Atherosclerotic heart disease of native coronary artery without angina pectoris; F17.210 Nicotine dependence, cigarettes, uncomplicated; R94.31 Abnormal electrocardiogram [ECG] [EKG]; R12 Heartburn; M12.9 Arthropathy, unspecified; J44.9 Chronic obstructive pulmonary disease, unspecified; R06.83 Snoring; G47.33 Obstructive sleep apnea (adult) (pediatric); N40.0 Benign prostatic hyperplasia without lower urinary tract symptoms; Z79.4 Long term (current) use of insulin; Z79.82 Long term (current) use of aspirin; Z79.899 Other long term (current) drug therapy; Z85.528 Personal history of other malignant neoplasm of kidney; Z88.1 Allergy status to other antibiotic agents; Z88.8 Allergy status to other drugs, medicaments and biological substances; Z90.5 Acquired absence of kidney; Z91.040 Latex allergy status; Z95.5 Presence of coronary angioplasty implant and graft

== ENCOUNTER 2019-12-14 12:28 | Emergency (ER) | payer MEDICARE ==
[~2019-12-14] VITALS: Ht 182.9 cm; Wt 109.1 kg
[~2019-12-14 12:28] MED LIST changes: -D5W/0.2% SODIUM CHLORIDE 1,000 ML IV ONE; +OXYC1TAB23 PO; -ceFAZolin SOD 2 GM in IV 1 EA IV ONE
[2019-12-14 13:15] LABS: BASO % 0.2 % (0.0-1.0); EOS # 0.3 10^3/uL (0.0-0.5); EOS % 3.4 % (0.0-3.0); HEMATOCRIT 30.6 % (42.0-52.0); HEMOGLOBIN 10.2 g/dl (13.5-17.5); LYMPH # 1.3 10^3/uL (1.5-5.0); LYMPH % 15.9 % (24.0-44.0); MEAN CORPUSCULAR HEMOGLOBIN 31.4 pg (27.0-33.0); MEAN CORPUSCULAR HGB CONC 33.3 g/dl (32.0-36.5); MEAN CORPUSCULAR VOLUME 94.2 fl (80.0-96.0); MONO # 0.5 10^3/uL (0.0-0.8); MONO % 6.3 % (0.0-5.0); NEUTROPHILS % 73.8 % (36.0-66.0); PLATELET COUNT, AUTOMATED 166 10^3/uL (150-450); RED BLOOD COUNT 3.25 10^6/uL (4.30-6.10); WHITE BLOOD COUNT 8.1 10^3/uL (4.0-10.0)
[2019-12-14] MEDS ORDERED: ASPIRIN 81 MG CHEW TABLET PO ONE (13:15)
[2019-12-14 13:26] LABS: INR 0.97; PROTHROMBIN TIME 12.6 SECONDS (11.8-14.0)
[2019-12-14 13:52] LABS: ALBUMIN 3.4 GM/DL (3.2-5.2); BILIRUBIN,DIRECT 0.1 MG/DL (0.0-0.2); BILIRUBIN,TOTAL 0.3 MG/DL (0.2-1.0); CALCIUM LEVEL 8.4 MG/DL (8.8-10.2); CK-MB VALUE MASS 3.3 NG/ML (<3.6); CREATININE FOR GFR 4.32 MG/DL (0.70-1.30); GLOMERULAR FILTRATION RATE 14.4 (>42); MB/CK RELATIVE INDEX 2.6 (< OR =4); POTASSIUM SERUM 4.1 MEQ/L (3.5-5.1); THYROID STIMULATING HORMONE 1.56 uIU/ML (0.358-3.740)
[2019-12-14] MEDS ORDERED: BASA100I SC (13:59)
[2019-12-14] MEDS ORDERED: LOSA50TA88 PO (13:59)
[2019-12-14] MEDS ORDERED: DOXA1TAB41 PO (13:59)
[2019-12-14] MEDS ORDERED: ATEN50TA2 PO (13:59)
[2019-12-14] MEDS ORDERED: ROCA0.25 PO (13:59)
[2019-12-14] MEDS ORDERED: SM N PO (13:59)
[2019-12-14] MEDS ORDERED: MELA3TAB49 PO (13:59)
[2019-12-14] MEDS ORDERED: NOVOINJ3 SC (13:59)
[2019-12-14] MEDS: NS 500 ML IV ONE ×2 (14:08→16:08)
--- NOTE | 2019-12-14 15:28 | REP ---
REASON FOR EXAM: Chest pain. COMPARISON: The latest prior 06/06/2017, also portable. The technique utilized in obtaining the radiograph has magnified the cardiac silhouette and accentuated the interstitial markings. Cardiomediastinal silhouette and lung rodriguez are unchanged. No acute patchy parenchymal opacities or pleural effusions have developed. There is mild cardiomegaly accentuated by technique. There is no change in the osseous structures. IMPRESSION: Stable appearing chronic changes. Electronically Signed by Massimo Hunt DO 12/14/2019 05:06 P
[2019-12-14] MEDS ORDERED: NS 1,000 ML IV SCH (16:00)
[2019-12-14] MEDS ORDERED: MONT10TA4 PO (16:17)
[2019-12-14] MEDS ORDERED: LOMO2.5T PO (16:17)
[2019-12-14] MEDS ORDERED: FENO160T10 PO (16:17)
[2019-12-14] MEDS ORDERED: MELA3TAB62 PO (16:17)
[2019-12-14] MEDS ORDERED: VITAD1000T PO (16:17)
--- NOTE | 2019-12-14 16:48 | HPEPDOC ---
[facility] Medical History & Physical Date of Admission Dec 14, 2019 Date of Service: Dec 14, 2019 Primary Care Physician: Karey Carrion Other Provider Attending Physician: VEGA FREED MD History and Physical TIME OF SERVICE 430PM CHIEF COMPLAINT: Chest pain HISTORY OF PRESENT ILLNESS: This is a 74 yr old M who presented w c/o of relapsing and remitting chest pain for 3 weeks. Initially the chest pain felt like GERD but this didn't resolve with rolaids; he had similar heart burn like symptoms when he had his previous heart attacks. Each episode of chest pain lasts less than 30 min. Yesterday while gardening his chest pain was so severe that he had to lie down; as a result his chest pain improved. This morning he also felt dizzy and had to hang on to something to avoid falling down. He denies having shortness of breath. Currently the CP is not present. ROS: negative except as listed in HPI PAST MEDICAL/SURGICAL HISTORY: Chronic CAD (has had 4 MIs w PCI, placement of 8 stents, 2 stents failed) IDDM Chronic HTN Stage V CKD / Hx of Renal cancer s/p right nephrectomy Per pt Unspecified type of CHF ? Denies having CVA or PAD Resection of colon polyps Hemorrhoidectomy Right nephrectomy SOCIAL HISTORY: Current smoker FAMILY HISTORY: Father: had several MIs / of "the bends" Mother and Sister were obese and had CHF ALLERGIES: Please see below. HOME MEDICATIONS: Please see below. PHYSICAL EXAMINATION: Vital Signs Date Time Temp Pulse Resp B/P (MAP) Pulse Ox O2 Delivery O2 Flow Rate FiO2 12/14/19 12:29 97.7 92 20 178/76 (110) 98 Room Air GENERAL APPEARANCE: NAD HEENT: NCAT/MMM&P CARDIOVASCULAR: RRR/NMRG / no CP w palpation of the chest LUNGS: CTAB on RA MUSCULOSKELETAL: PRABHU x 4 extremities NEUROLOGICAL: CN 2-12 intact / speech not dysarthric PSYCHIATRIC: A&O x 3 / able to understand and follow all commands LABORATORY DATA: 12/14/19 12:54 12/14/19 12:52: POC Troponin I (Misc) 0.43H 12/14/19 12:54: Immature Granulocyte % (Auto) 0.4, Neutrophils (%) (Auto) 73.8H, Lymphocytes (%) (Auto) 15.9L, Monocytes (%) (Auto) 6.3H, Eosinophils (%) (Auto) 3.4H, Basophils (%) (Auto) 0.2, Neutrophils # (Auto) 6.0, Lymphocytes # (Auto) 1.3L, Monocytes # (Auto) 0.5, Eosinophils # (Auto) 0.3, Basophils # (Auto) 0.0, Nucleated Red Blood Cells % (auto) 0.0, Prothrombin Time 12.6, Prothromb Time International Ratio 0.97, Activated Partial Thromboplast Time 27.0, Anion Gap 10, Glomerular Filtration Rate 14.4L, Calcium Level 8.4L, Total Bilirubin 0.3, Direct Bilirubin 0.1, Aspartate Amino Transf (AST/SGOT) 30, Alanine Aminotransferase (ALT/SGPT) 23, Alkaline Phosphatase 60, Total Creatine Kinase 127, Creatine Kinase MB 3.3, Creatine Kinase MB Relative Index 2.60, CQ-Zah-I-Type Natriuretic Peptide 1456H, Total Protein 6.0L, Albumin 3.4, Albumin/Globulin Ratio 1.3, Lipase 190, Thyroid Stimulating Hormone (TSH) 1.560 12/14/19 15:15: POC Troponin I (Misc) 0.42H IMAGING: Chest x-ray "IMPRESSION: Stable appearing chronic changes." MICROBIOLOGY: Please see below. ASSESSMENT: is a 74 yr old w a hx of Chronic CAD, CKDV, unspecified CHF ?, IDDM, HTN, and GERD who presented w c/o of relapsing and remitting CP concerning for unstable angina; his troponin is slightly elevated and his EKG is unremarkable. PLAN: 1. Unstable Angina / Typical Chest Pain ALDA Score for NSTEMI IS 6 points = 41% all cause mortality risk He received ASA in the ER and took his plavix this AM Based on his high ALDA score, which I discussed with over the phone, I strongly recommend that this patient is transferred to [facility] for possible PCI w/in the next 24H. Home Medications Scheduled Allopurinol (Zyloprim) 300 Mg Tablet, 300 MG PO DAILY Alpha Lipoic Acid (Alpha Lipoic Acid) 600 Mg Capsule, 200 MG PO DAILY Ascorbic Acid (Vitamin C) 500 Mg Capsule.er, 500 MG PO DAILY Aspirin (Ecotrin) 81 Mg Tablet.dr, 81 MG PO DAILY Atenolol (Atenolol) 50 Mg Tablet, 50 MG PO DAILY Calcitriol (Rocaltrol) 0.25 Mcg Capsule, 0.25 MCG PO DAILY Cholecalciferol (Vitamin D3) (Vitamin D3) 1,000 Unit Tablet, 1,000 UNITS PO DAILY Clopidogrel Bisulfate (Clopidogrel) 75 Mg Tab, 75 MG PO DAILY Cyanocobalamin (Vitamin B-12) (Vitamin B-12) 500 Mcg Tablet, 5,000 MCG PO DAILY Doxazosin Mesylate (Doxazosin Mesylate) 2 Mg Tablet, 2 MG PO QHS Fenofibrate (Fenofibrate) 160 Mg Tablet, 160 MG PO BID Glyburide (Glyburide) 5 Mg Tablet, 5 MG PO TID Insulin Aspart (Novolog Flexpen) 100 Unit/1 Ml Insuln.pen, 1 DOSE SC AC PER SLIDING SCALE Insulin Glargine,Hum.rec.anlog (Basaglar Kwikpen U-100) 100 Unit/1 Ml Insuln.pen, 60 UNIT SC DAILY Losartan Potassium (Losartan Potassium) 50 Mg Tablet, 50 MG PO DAILY Melatonin (Melatonin) 3 Mg Tablet, 3 MG PO QHS Montelukast Sodium (Montelukast Sodium) 10 Mg Tablet, 10 MG PO DAILY Rosuvastatin Calcium (Rosuvastatin Calcium) 40 Mg Tablet, 40 MG PO DAILY Tamsulosin HCl (Flomax) 0.4 Mg Capsule, 0.4 MG PO BID Torsemide (Torsemide) 20 Mg Tablet, 20 MG PO BID Scheduled PRN Albuterol Sulf (Albuterol Sulfate) 2.5 Mg/3 Ml Vial.neb, 3 ML INH QID PRN for SHORTNESS OF BREATH Diphenoxylate HCl/Atropine (Lomotil 2.5-0.025 mg Tablet) 1 Each Tablet, 1 TAB PO TID PRN for DIARRHEA Naproxen Sodium (Naproxen Sodium) 220 Mg Capsule, 220 MG PO BID PRN for PAIN Nitroglycerin (Nitroglycerin) 0.4 Mg Tab.subl, 0.4 MG SL NITRO PRN for CHEST PAIN Allergies Coded Allergies: latex (Verified Allergy, Intermediate, rash, 07/12/19) baclofen (Verified Adverse Reaction, Intermediate, "shut my kidney down", hallucinations, 07/12/19) cyclobenzaprine (Verified Adverse Reaction, Intermediate, joint swelling, 07/12/19) A-FIB/CHADSVASC A-FIB History Current/History of A-Fib/PAF?: No Current PO Anticoag Therapy: No VEGA FREED MD Dec 14, 2019 16:48
[2019-12-14 18:11] VITALS: BP 115/65
--- NOTE | 2019-12-14 21:34 | ECGEPIP ---
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
--- NOTE | 2019-12-14 21:36 | ECGEPIP ---
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
== END 2019-12-14 18:13 | disposition other institution (70) ==
LOC: M ED 12:28
DX: N17.9 Acute kidney failure, unspecified (principal); I24.9 Acute ischemic heart disease, unspecified; R10.13 Epigastric pain; N18.6 End stage renal disease; I44.0 Atrioventricular block, first degree; I25.2 Old myocardial infarction; Z95.5 Presence of coronary angioplasty implant and graft; Z79.82 Long term (current) use of aspirin; Z79.4 Long term (current) use of insulin; Z79.899 Other long term (current) drug therapy; Z88.1 Allergy status to other antibiotic agents; Z88.8 Allergy status to other drugs, medicaments and biological substances; Z91.040 Latex allergy status

== ENCOUNTER → 2020-02-26 | Outpatient (CLI) | payer MEDICARE ==
[~2020-02-26] MED LIST changes: -AMLO10TA5 PO; +AMLO1TAB24 PO; +AMLO1TAB25 PO; +D31000TA2 PO; +FURO80TA2 PO; +LOMO2.5T PO; +LOSA50TA88 PO; +MELA3TAB30 PO; +MELA3TAB49 PO; +METO1TAB87 PO; +MONT10TA4 PO; +OXYC-517 PO; +ROCA0.25 PO; +SM N PO
--- NOTE | 2020-03-18 08:11 | SLEEPHOME ---
[facility] REPORT DATE: 02/26/2020 ORDERED BY: Taylor Pacheco NP Diagnostic home sleep testing was performed due to concern for the obstructive sleep apnea syndrome. For testing, a nocturnal T3 respiratory monitoring device was used. Continuous record was made of pulse, oxygen saturation, air flow, chest and abdominal strain, and body position. Nine hours and 59 minutes of data were reviewed. There were 6 hours and 30 minutes marked as time in bed. During the interval marked time in bed, there were 383 respiratory events identified of 10 seconds in duration or greater for a respiratory event index of 63. The events were primarily obstructive. Baseline pulse rate 77, pulse rate range 63-105, baseline saturation 92%, saturations fell to 83%. Testing was performed in both the supine and non- supine positions. IMPRESSION: Abnormal home sleep testing with repetitive respiratory events and oxygen desaturations to 83% with a respiratory event index of 63.2 is consistent with the obstructive sleep apnea syndrome. RECOMMENDATION: The patient should be encouraged to undergo a formal sleep evaluation. /nikki MCLEAN
== END ==
LOC: M SLEEP HO 11:32
PROVIDERS: ATTEND Nurse Practitioner Adult Health
DX: R06.83 Snoring (principal)

== ENCOUNTER → 2020-03-16 | Outpatient (CLI) | payer MEDICARE ==
--- NOTE | 2020-03-21 17:32 | SLEEPCENT ---
DATE: 03/16/2020 ORDERED BY: Taylor Penny NP Nocturnal polysomnography was performed for the titration of pressure therapy in this patient with clinical history of obstructive sleep apnea syndrome supported by home testing revealing respiratory event index of 63.2 with desaturations to 83%. For testing, a Respironics nTAG InteractiveWear full face mask of medium size was used, 4 cm of water pressure were applied to the circuit and the lights were extinguished. Six hours and 45 minutes of data were reviewed. There was 147.5 minutes of sleep identified. Sleep latency was prolonged at 62 minutes. REM latency was prolonged at 260 minutes. Sleep architecture was fair with periods of wake resulting in a reduced sleep efficiency of 37.2%. There was one REM cycle late in the test. The electrocardiogram showed a sinus rhythm with PVCs. Average heart rate of 78 beats per minute. EEG showed reasonably normal waveforms for wake and sleep. Respiratory events appeared to be reasonably well palliated early in the study. The patient subsequently moved to the supine position and emergence of obstructive events occurred. Best sleep was seen on the CPAP pressure of 13. However, this pressure was only achieved very late in the study. Significant limb activity was also noted. The patient's limb movement arousal index was 4.9. IMPRESSION: Obstructive sleep apnea syndrome (G47.33). RECOMMENDATION: Initiation of pressure therapy at 13 cm of water would seem appropriate based on these results. Close clinical followup will be necessary given the severity of the patient's disease and if symptoms persist, re-testing to identify optimal pressure may be necessary. [facility]
== END ==
LOC: M SLEEP 20:00
PROVIDERS: ATTEND Nurse Practitioner Adult Health
DX: G47.33 Obstructive sleep apnea (adult) (pediatric) (principal)

== ENCOUNTER 2020-04-06 13:15 | Emergency (ER) | payer MEDICARE ==
[~2020-04-06] VITALS: Ht 182.9 cm; Wt 100.5 kg
[~2020-04-06 13:15] MED LIST changes: -AMLO1TAB24 PO; -FURO80TA2 PO; -METO1TAB87 PO; -OXYC-517 PO
[2020-04-06 14:05] LABS: BASO % 0.2 % (0.0-1.0); EOS # 0.3 10^3/uL (0.0-0.5); EOS % 2.4 % (0.0-3.0); HEMOGLOBIN 12.1 g/dl (13.5-17.5); LYMPH # 1.3 10^3/uL (1.5-5.0); MEAN CORPUSCULAR HEMOGLOBIN 27.9 pg (27.0-33.0); MEAN CORPUSCULAR VOLUME 90.1 fl (80.0-96.0); MONO # 0.7 10^3/uL (0.0-0.8); MONO % 5.4 % (0.0-5.0); NEUTROPHILS # 9.7 10^3/uL (1.5-8.5); NEUTROPHILS % 80.7 % (36.0-66.0); PLATELET COUNT, AUTOMATED 240 10^3/uL (150-450); RED BLOOD COUNT 4.33 10^6/uL (4.30-6.10)
[2020-04-06] MEDS ORDERED: ACETAMINOPHEN TAB 650MG DOSE (2X325MG) PO ONE (15:00)
[2020-04-06 15:02] LABS: MAGNESIUM LEVEL 2.7 MG/DL (1.8-2.4); THYROID STIMULATING HORMONE 1.28 uIU/ML (0.358-3.740)
--- NOTE | 2020-04-06 15:50 | REPVR ---
PROCEDURE INFORMATION: Exam: XR Chest, 1 View Exam date and time: 04/06/2020 1:44 PM Age: 74 years old Clinical indication: Chest pain; Additional info: Chills, rigors TECHNIQUE: Imaging protocol: XR of the chest Views: 1 view. COMPARISON: CR PORTABLE CHEST X-RAY 12/14/2019 1:30 PM FINDINGS: Tubes, catheters and devices: ECG leads/contacts overlie and partially obscure the anatomy. Lungs: No pulmonary consolidation or edema. Pleural space: The bilateral cardiophrenic angles and the right lateral costophrenic angle are not imaged. No evident pleural effusion. No evident pneumothorax. Heart/Mediastinum: Status post coronary arterial bypass grafting. The cardiac silhouette is mildly diffusely enlarged. Vasculature: Tortuous thoracic aorta. Aortic atherosclerotic calcification. Bones/joints: Sternotomy closure devices present. IMPRESSION: 1. Mild cardiomegaly. 2. No pulmonary consolidation. Electronically signed by: Jeff Hutchison On 04/06/2020 15:50:18 PM
--- NOTE | 2020-04-06 16:58 | REPVR ---
PROCEDURE INFORMATION: Exam: CT Chest Without Contrast Exam date and time: 04/06/2020 4:26 PM Age: 74 years old Clinical indication: Other: R/O post-sternotomy infection/abscess; Prior surgery; Surgery date: <1 month TECHNIQUE: Imaging protocol: Computed tomography of the chest without contrast. 3D rendering (Not supervised by radiologist): MIP and/or 3D reconstructed images were created by the technologist. Radiation optimization: All CT scans at this facility use at least one of these dose optimization techniques: automated exposure control; mA and/or kV adjustment per patient size (includes targeted exams where dose is matched to clinical indication); or iterative reconstruction. COMPARISON: CR Chest, 1 view 04/06/2020 3:00 PM FINDINGS: Lungs: Pulmonary vascular/interstitial pattern does not suggest active pulmonary edema. No suspicious lung mass or air space process. No central endobronchial lesion. Pleural space: No pleural effusion or pneumothorax. Heart: Median sternotomy and coronary bypass changes are present. No overt cardiac enlargement or abnormal volume of pericardial fluid. Aorta: Thoracic aorta shows atherosclerotic change. No focal aneurysm. Lymph nodes: No enlarged mediastinal lymph nodes. Kidneys and ureters: Incompletely imaged 17 mm exophytic lesion, upper pole left kidney. Bones/joints: Bony structures are unremarkable except for thoracic degenerative disc disease. Nonspecific soft tissue stranding superficial and deep to the sternum. No soft tissue air within the chest and no organized fluid collection Soft tissues: See "Bones/joints" finding. Other findings: Limited study secondary to absence of IV contrast, streak artifact from scanning of the patient with the upper extremities over the chest and patient motion. IMPRESSION: 1. Mild soft tissue stranding in the anterior mediastinum and superficial to the sternum consistent with postoperative change. I do not see evidence of a defined abscess or hematoma 2. No other acute or concerning focal thoracic abnormality in a patient who has undergone a prior sternotomy and probably coronary bypass. 3. Indeterminate density, incompletely imaged 17 mm exophytic left renal lesion. This can be evaluated using outpatient sonography in less it can be demonstrated to have been present on the prior abdomen CT from December 15, 2017. Those images are not available at the time of current study review Electronically signed by: Kwasi Sauceda On 04/06/2020 16:58:41 PM
[2020-04-06] MEDS ORDERED: NS 500 ML IV ONE (17:00)
[2020-04-06] MEDS ORDERED: VANCOMYCIN HCL IV ONE (17:30)
[2020-04-06] MEDS ORDERED: NS IV ONE (17:30)
[2020-04-06] MEDS ORDERED: PIPERACILLIN/TAZOBACTAM SOD 2.25 GM in D5W MINI-BAG PLUS 50 ML IV ONE (17:30)
[2020-04-06] MEDS ORDERED: FLUID PLACE HOLDER IV ONE (17:30)
[2020-04-06] MEDS ORDERED: FURO80TA2 PO (17:45)
[2020-04-06] MEDS ORDERED: METO1TAB87 PO (17:45)
[2020-04-06] MEDS ORDERED: AMLO1TAB24 PO (17:45)
[2020-04-06] MEDS ORDERED: VANCOMYCIN HCL 1,000 MG, VIAL MATE ADAPTER 1 EACH in D5W 250 ML IV ONE ×2 (17:45→18:45)
[2020-04-06 18:24] VITALS: BP 163/71
--- NOTE | 2020-04-07 05:46 | ECGEPIP ---
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
== END 2020-04-06 18:28 | disposition short-term general hospital (02) ==
LOC: M ED 13:15
DX: M86.8X8 Other osteomyelitis, other site (principal); A41.9 Sepsis, unspecified organism; R00.0 Tachycardia, unspecified; I44.0 Atrioventricular block, first degree; I25.10 Atherosclerotic heart disease of native coronary artery without angina pectoris; E11.9 Type 2 diabetes mellitus without complications; I10 Essential (primary) hypertension; E78.5 Hyperlipidemia, unspecified; G47.33 Obstructive sleep apnea (adult) (pediatric); M10.9 Gout, unspecified; N18.5 Chronic kidney disease, stage 5; Z85.528 Personal history of other malignant neoplasm of kidney; Z95.5 Presence of coronary angioplasty implant and graft; Z95.1 Presence of aortocoronary bypass graft; F17.200 Nicotine dependence, unspecified, uncomplicated; Z79.82 Long term (current) use of aspirin; Z79.4 Long term (current) use of insulin; Z79.899 Other long term (current) drug therapy; Z88.1 Allergy status to other antibiotic agents; Z88.8 Allergy status to other drugs, medicaments and biological substances; Z91.040 Latex allergy status
CPT/HCPCS: 36600; 71045; 71250; 80047; 81001; 82803; 83605; 83735; 84443; 84484; 85025; 87040; 87486; 87581; 87633; 87798; 93005; 93041; 96365; 96368; 96376; 99291; 99292; J2543; J3370

== ENCOUNTER → 2020-04-22 | Outpatient (REF) | payer MEDICARE ==
[~2020-04-22] MED LIST changes: +AMLO1TAB24 PO; +FURO80TA2 PO; +METO1TAB87 PO; +OXYC-517 PO
[2020-04-22 19:10] LABS: HEMATOCRIT 30.2 % (42.0-52.0); HEMOGLOBIN 9.1 g/dl (13.5-17.5); MEAN CORPUSCULAR HEMOGLOBIN 26.9 pg (27.0-33.0); MEAN CORPUSCULAR HGB CONC 30.1 g/dl (32.0-36.5); MEAN CORPUSCULAR VOLUME 89.3 fl (80.0-96.0); PLATELET COUNT, AUTOMATED 416 10^3/uL (150-450); RED BLOOD COUNT 3.38 10^6/uL (4.30-6.10); WHITE BLOOD COUNT 8.6 10^3/uL (4.0-10.0)
[2020-04-22 19:18] LABS: ALBUMIN 3.2 GM/DL (3.2-5.2); BILIRUBIN,TOTAL 0.4 MG/DL (0.2-1.0); CALCIUM LEVEL 9.2 MG/DL (8.8-10.2); CREATININE FOR GFR 4.69 MG/DL (0.70-1.30); GLOMERULAR FILTRATION RATE 13.1 (>42); POTASSIUM SERUM 4.2 MEQ/L (3.5-5.1); TOTAL PROTEIN 6.7 GM/DL (6.4-8.2)
== END ==
LOC: M SHH 17:56 → M LAB REF 17:56
PROVIDERS: ATTEND Internal Medicine
DX: Z01.89 Encounter for other specified special examinations (principal)

== ENCOUNTER → 2020-04-29 | Outpatient (REF) | payer MEDICARE ==
[2020-04-29 16:27] LABS: BASO % 0.3 % (0.0-1.0); EOS # 0.6 10^3/uL (0.0-0.5); EOS % 8.1 % (0.0-3.0); HEMATOCRIT 29.9 % (42.0-52.0); HEMOGLOBIN 8.9 g/dl (13.5-17.5); LYMPH % 12.2 % (24.0-44.0); MEAN CORPUSCULAR HEMOGLOBIN 26.4 pg (27.0-33.0); MEAN CORPUSCULAR HGB CONC 29.8 g/dl (32.0-36.5); MEAN CORPUSCULAR VOLUME 88.7 fl (80.0-96.0); MONO # 0.5 10^3/uL (0.0-0.8); MONO % 6.6 % (0.0-5.0); NEUTROPHILS # 5.7 10^3/uL (1.5-8.5); NEUTROPHILS % 72.4 % (36.0-66.0); PLATELET COUNT, AUTOMATED 311 10^3/uL (150-450); RED BLOOD COUNT 3.37 10^6/uL (4.30-6.10); WHITE BLOOD COUNT 7.9 10^3/uL (4.0-10.0)
[2020-04-29 16:53] LABS: CALCIUM LEVEL 9.3 MG/DL (8.8-10.2); CREATININE FOR GFR 4.89 MG/DL (0.70-1.30); GLOMERULAR FILTRATION RATE 12.5 (>42); POTASSIUM SERUM 4.1 MEQ/L (3.5-5.1)
== END ==
LOC: M SHH 15:35
PROVIDERS: ATTEND Nurse Practitioner
DX: S21.101A Unspecified open wound of right front wall of thorax without penetration into thoracic cavity, initial encounter (principal); L08.9 Local infection of the skin and subcutaneous tissue, unspecified; Z79.2 Long term (current) use of antibiotics; X58.XXXA Exposure to other specified factors, initial encounter; Y92.89 Other specified places as the place of occurrence of the external cause

== ENCOUNTER 2020-05-05 21:50 | Emergency (ER) | payer MEDICARE ==
[~2020-05-05] VITALS: Ht 177.8 cm; Wt 99.0 kg
[~2020-05-05 21:50] MED LIST changes: -OXYC-517 PO
[2020-05-05] MEDS ORDERED: OXYC-517 PO (22:10)
[2020-05-05] MEDS ORDERED: NS 500 ML IV ONE (22:30)
[2020-05-05 22:51] LABS: BASO % 0.2 % (0.0-1.0); EOS % 0.4 % (0.0-3.0); HEMOGLOBIN 9.2 g/dl (13.5-17.5); LYMPH # 0.5 10^3/uL (1.5-5.0); LYMPH % 4.7 % (24.0-44.0); MEAN CORPUSCULAR HEMOGLOBIN 25.8 pg (27.0-33.0); MEAN CORPUSCULAR HGB CONC 29.7 g/dl (32.0-36.5); MEAN CORPUSCULAR VOLUME 86.8 fl (80.0-96.0); MONO # 0.8 10^3/uL (0.0-0.8); MONO % 7.3 % (0.0-5.0); NEUTROPHILS # 9.7 10^3/uL (1.5-8.5); NEUTROPHILS % 86.9 % (36.0-66.0); PLATELET COUNT, AUTOMATED 319 10^3/uL (150-450); RED BLOOD COUNT 3.57 10^6/uL (4.30-6.10); WHITE BLOOD COUNT 11.1 10^3/uL (4.0-10.0)
--- NOTE | 2020-05-05 23:09 | REPVR ---
PROCEDURE INFORMATION: Exam: CT Head Without Contrast Exam date and time: 05/05/2020 10:40 PM Age: 74 years old Clinical indication: Pain; Headache; Additional info: Altered mental status TECHNIQUE: Imaging protocol: Computed tomography of the head without contrast. Radiation optimization: All CT scans at this facility use at least one of these dose optimization techniques: automated exposure control; mA and/or kV adjustment per patient size (includes targeted exams where dose is matched to clinical indication); or iterative reconstruction. COMPARISON: No relevant prior studies available. FINDINGS: Brain: There is mild volume loss. No acute infarct. No hemorrhage. There is a left frontal hygroma or chronic hematoma measuring 5 mm in thickness with mild mass effect on the left frontal lobe. There is minimal, 2 mm, of midline shift. No acute hemorrhage within this fluid. Cerebral ventricles: No ventriculomegaly. Bones/joints: Unremarkable. No acute fracture. Paranasal sinuses: There are postoperative changes of the sinuses. No air-fluid levels. Mastoid air cells: Visualized mastoid air cells are well aerated. Soft tissues: Unremarkable. IMPRESSION: 1. Small left frontal hygroma or chronic subdural hematoma measuring five mm in thickness. 2. No acute lesion or injury. Electronically signed by: Willie Mcconnell On 05/05/2020 23:08:56 PM
--- NOTE | 2020-05-05 23:20 | REPVR ---
PROCEDURE INFORMATION: Exam: CT Chest Without Contrast Exam date and time: 05/05/2020 10:40 PM Age: 74 years old Clinical indication: Chest pain; Additional info: AMS, recent osteo of sternum w/ debr, chronic kidney disease TECHNIQUE: Imaging protocol: Computed tomography of the chest without contrast. 3D rendering (Not supervised by radiologist): MIP and/or 3D reconstructed images were created by the technologist. Radiation optimization: All CT scans at this facility use at least one of these dose optimization techniques: automated exposure control; mA and/or kV adjustment per patient size (includes targeted exams where dose is matched to clinical indication); or iterative reconstruction. COMPARISON: CT Chest without contrast 04/06/2020 4:17 PM FINDINGS: Lungs: Coarse pulmonary interstitium, primarily subpleural and greatest in the right lower lobe and to a lesser degree left lower lobe and right upper lobe with minimal associated fibro-atelectatic change. Pleural space: Unremarkable. No pneumothorax. No pleural effusion. Heart: Status post sternotomy and CABG with no sternal sutures and some dehiscence of the sternotomy which is by approximately 9 mm. There is a midline incision which extends into the sternotomy defect which is open by approximately 6 mm. No destructive or erosive changes are identified. Pulmonary arteries: The main pulmonary artery measures 28 mm. Aorta: The ascending thoracic aorta measures 37 mm. Veins: Right internal jugular central line extending to the distal superior vena cava. Lymph nodes: Unremarkable. No enlarged lymph nodes. Bones/joints: Degenerative changes of the shoulders, right greater than left. Soft tissues: Unremarkable. IMPRESSION: 1. Interval removal of metallic rings about the sternum since 04/06/2020. There is now an open midline incision which extends into the sternotomy defect. 2. Right internal jugular central line to the distal superior vena cava which is new since the prior study. 3. Coarse subpleural pulmonary interstitium with minimal scattered fibro-atelectatic change, greatest in the right lower lobe which may be slightly improved since the prior study. Electronically signed by: Itz Mcdaniel On 05/05/2020 23:19:51 PM
[2020-05-05 23:35] LABS: ACETAMINOPHEN LEVEL < 2.0 UG/ML (10.0-30.0); ALBUMIN 3.3 GM/DL (3.2-5.2); ALT/SGPT 17 U/L (12-78); BILIRUBIN,DIRECT 0.3 MG/DL (0.0-0.2); BILIRUBIN,TOTAL 0.5 MG/DL (0.2-1.0); BLOOD UREA NITROGEN 78 MG/DL (7-18); CALCIUM LEVEL 9.2 MG/DL (8.8-10.2); CARBON DIOXIDE LEVEL 28 MEQ/L (21-32); CHLORIDE LEVEL 100 MEQ/L (98-107); CK-MB VALUE MASS < 1.0 NG/ML (<3.6); CPK CREATINE PHOSPHOKINASE 62 U/L (39-308); CREATININE FOR GFR 4.98 MG/DL (0.70-1.30); ETHYL ALCOHOL (ETHANOL) < 0.003 % (0.000-0.010); GLOMERULAR FILTRATION RATE 12.2 (>42); GLUCOSE, FASTING 69 MG/DL (70-100); MB/CK RELATIVE INDEX 1.61 (< OR =4); POTASSIUM SERUM 3.7 MEQ/L (3.5-5.1); SALICYLATE LEVEL < 1.7 MG/DL (5.0-30.0); SODIUM LEVEL 137 MEQ/L (136-145); TOTAL PROTEIN 7.1 GM/DL (6.4-8.2); TROPONIN I 0.04 NG/ML (< 0.10)
[2020-05-06 00:20] LABS: AMPHETAMINES LEVEL URINE NEGATIVE (NEGATIVE); BARBITURATES URINE NEGATIVE (NEGATIVE); BENZODIAZEPINES URINE NEGATIVE (NEGATIVE); CANNABINOIDS URINE NEGATIVE (NEGATIVE); COCAINE METABOLITE URINE NEGATIVE (NEGATIVE); METHADONE URINE NEGATIVE (NEGATIVE); OPIATES URINE NEGATIVE (NEGATIVE); PHENCYCLIDINE URINE NEGATIVE (NEGATIVE)
[2020-05-06] MEDS ORDERED: LR 1,000 ML IV SCH (00:30)
[2020-05-06] MEDS ORDERED: hydrALAZINE 20MG/ML 1ML VIAL (J0360 PER 20MG) IV ONE (01:15)
[2020-05-06 01:30] VITALS: BP 148/67
[2020-05-06 01:36] VITALS: BP 148/67
--- NOTE | 2020-05-06 19:36 | ECGEPIP ---
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
== END 2020-05-06 02:14 | disposition short-term general hospital (02) ==
LOC: M ED 21:50
DX: S06.5X0A Traumatic subdural hemorrhage without loss of consciousness, initial encounter (principal); W01.10XA Fall on same level from slipping, tripping and stumbling with subsequent striking against unspecified object, initial encounter; Y92.9 Unspecified place or not applicable; Y93.9 Activity, unspecified; R41.82 Altered mental status, unspecified; R91.8 Other nonspecific abnormal finding of lung field; E11.9 Type 2 diabetes mellitus without complications; E78.5 Hyperlipidemia, unspecified; I11.0 Hypertensive heart disease with heart failure; I25.10 Atherosclerotic heart disease of native coronary artery without angina pectoris; I25.2 Old myocardial infarction; J44.9 Chronic obstructive pulmonary disease, unspecified; K21.9 Gastro-esophageal reflux disease without esophagitis; N18.5 Chronic kidney disease, stage 5; Z85.528 Personal history of other malignant neoplasm of kidney; Z95.5 Presence of coronary angioplasty implant and graft; Z95.1 Presence of aortocoronary bypass graft; Z79.82 Long term (current) use of aspirin; Z79.4 Long term (current) use of insulin; Z79.899 Other long term (current) drug therapy; Z88.1 Allergy status to other antibiotic agents; Z88.8 Allergy status to other drugs, medicaments and biological substances; Z91.040 Latex allergy status
CPT/HCPCS: 70450; 71250; 80048; 80076; 80307; 82140; 82550; 82553; 83605; 84443; 84484; 85025; 87040; 87077; 87186; 93005; 93041; 94760; 96374; 99285; G0480; J0360

== ENCOUNTER 2020-05-31 15:28 | Emergency (ER) | payer MEDICARE ==
[~2020-05-31] VITALS: Ht 182.9 cm; Wt 100.0 kg
[~2020-05-31 15:28] MED LIST changes: -MONT10TA4 PO; +MONT5TAB2 PO; +OXYC-517 PO
[2020-05-31] MEDS ORDERED: NS 500 ML IV ONE (16:15)
[2020-05-31] MEDS ORDERED: ONDANSETRON 4MG/2ML VIAL IV ONE (16:15)
[2020-05-31] MEDS ORDERED: ACETAMINOPHEN 325 MG TAB PO ONE (16:15)
[2020-05-31] MEDS ORDERED: MORPHINE 4 MG/ML 1ML VIAL/SYRINGE (J2270) IV ONE (16:15)
[2020-05-31 16:21] LABS: ABG HCO3 20.9 MEQ/L (22.0-26.0); ABG O2 SATURATION 94.4 % (95.0-99.0); ABG PARTIAL PRESSURE CO2 28.8 mmHg (35.0-45.0); ABG PARTIAL PRESSURE O2 68.3 mmHg (75.0-100.0); ABG STANDARD HCO3 22.7 MEQ/L (22.0-26.0); ABG TOTAL CO2 21.8 MEQ/L (23.0-31.0); ABG pH (ARTERIAL) 7.478 UNITS (7.350-7.450)
[2020-05-31 16:27] LABS: BASO % 0.2 % (0.0-1.0); EOS # 0.2 10^3/uL (0.0-0.5); EOS % 1.3 % (0.0-3.0); HEMATOCRIT 29.9 % (42.0-52.0); HEMOGLOBIN 8.6 g/dl (13.5-17.5); LYMPH % 8.5 % (24.0-44.0); MEAN CORPUSCULAR HGB CONC 28.8 g/dl (32.0-36.5); MEAN CORPUSCULAR VOLUME 86.9 fl (80.0-96.0); MONO # 0.8 10^3/uL (0.0-0.8); MONO % 6.9 % (0.0-5.0); NEUTROPHILS # 9.4 10^3/uL (1.5-8.5); NEUTROPHILS % 82.2 % (36.0-66.0); PLATELET COUNT, AUTOMATED 345 10^3/uL (150-450); RED BLOOD COUNT 3.44 10^6/uL (4.30-6.10); WHITE BLOOD COUNT 11.4 10^3/uL (4.0-10.0)
[2020-05-31] MEDS ORDERED: oxyCODONE 5MG TAB PO ONE (16:30)
[2020-05-31 16:41] LABS: INR 1.03; PROTHROMBIN TIME 13.7 SECONDS (12.5-14.3)
[2020-05-31 16:42] LABS: PARTIAL THROMBOPLASTIN TIME 34.5 SECONDS (24.2-38.5)
--- NOTE | 2020-05-31 16:54 | REP ---
INDICATION: SEPSIS/SHOCK COMPARISON: 04/06/2020 TECHNIQUE: Portable AP view of the chest FINDINGS: Previously noted sternotomy wires have been removed. The cardiac silhouette is normal. No obvious pneumomediastinum appreciated. The lung rodriguez demonstrate chronic appearing changes with mild bibasilar atelectasis. No effusion. No pneumothorax. IMPRESSION: 1. Sternotomy wires have been removed. No subcutaneous or mediastinal gas identified. Cardiac silhouette is normal. 2. Trace basilar atelectasis. <Electronically signed by Madhav Hickey > 05/31/20 [id number]
[2020-05-31 17:04] LABS: ALBUMIN 3.3 GM/DL (3.2-5.2); ALT/SGPT 11 U/L (12-78); AMYLASE 57 U/L (25-115); BILIRUBIN,DIRECT 0.2 MG/DL (0.0-0.2); BILIRUBIN,TOTAL 0.3 MG/DL (0.2-1.0); BLOOD UREA NITROGEN 48 MG/DL (7-18); CALCIUM LEVEL 9.1 MG/DL (8.8-10.2); CARBON DIOXIDE LEVEL 24 MEQ/L (21-32); CHLORIDE LEVEL 106 MEQ/L (98-107); CK-MB VALUE MASS < 1.0 NG/ML (<3.6); CPK CREATINE PHOSPHOKINASE 43 U/L (39-308); CREATININE FOR GFR 4.26 MG/DL (0.70-1.30); FREE T4 0.98 NG/DL (0.76-1.46); GLOMERULAR FILTRATION RATE 14.6 (>42); GLUCOSE, FASTING 280 MG/DL (70-100); LIPASE 128 U/L (73-393); MB/CK RELATIVE INDEX 2.33 (< OR =4); NT-PRO BNP 2110 PG/ML (<125); POTASSIUM SERUM 4.1 MEQ/L (3.5-5.1); SODIUM LEVEL 139 MEQ/L (136-145); THYROID STIMULATING HORMONE 0.849 uIU/ML (0.358-3.740); TOTAL PROTEIN 6.8 GM/DL (6.4-8.2); TROPONIN I < 0.02 NG/ML (< 0.10)
--- NOTE | 2020-05-31 17:20 | REP ---
INDICATION: hx wound infection COMPARISON: None TECHNIQUE: Axial noncontrast images from the thoracic inlet to the upper abdomen with coronal and sagittal reformations. This CT examination was performed using the following dose reduction techniques: Automated exposure control, adjustment of mA and/or kv according to the patient's size, and use of iterative reconstruction technique. FINDINGS: Patient appears to be status post removal of sternotomy wires. In comparison with the recent prior examination dated 05/05/2020, there appears to be slightly more gas and inflammatory-type changes in relation to the sternotomy with slightly more phlegmonous like density extending deep to the sternum into the very anterior portion of the mediastinum superficial to the pericardium (series 202; images 20-81). Findings are suspicious for continued/active inflammatory process. No obvious drainable collection is visible. Remainder of the mediastinum demonstrates evidence for prior CABG. Atherosclerotic changes to the thoracic aorta noted. No pericardial effusion. Small nonspecific mediastinal lymph nodes are possibly reactive but without significant adenopathy. Tracheobronchial tree is patent. Lung rodriguez demonstrate chronic emphysematous changes with mild bibasilar atelectasis slightly increased from prior examination. IMPRESSION: 1. Slightly increased inflammatory changes at the sternotomy site as described above suggesting an acute infectious/inflammatory process. Inflammatory changes extend deep to the sternum and superficial to the pericardium. No obvious drainable collection is identified by current noncontrast exam. 2. Lung rodriguez demonstrate mild but increased bibasilar atelectasis. <Electronically signed by Madhav Hickey > 05/31/20 [id number]
[2020-05-31] MEDS ORDERED: NS 1,000 ML IV ONE ×2 (18:00→18:15)
[2020-05-31] MEDS ORDERED: DAPTOmycin 500 MG in NS 50 ML IV SCH (18:00)
--- NOTE | 2020-05-31 19:24 | ECGEPIP ---
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
[2020-05-31 19:45] VITALS: BP 177/77
[2020-05-31] MEDS ORDERED: NORCO, ANEXSIA 5/325MG TABLET (HYDROcodone/ACETAMINOPHEN) PO ONE (20:00)
== END 2020-05-31 20:12 | disposition short-term general hospital (02) ==
LOC: M ED 15:28
DX: T81.40XA Infection following a procedure, unspecified, initial encounter (principal); R00.0 Tachycardia, unspecified; R07.9 Chest pain, unspecified; I25.10 Atherosclerotic heart disease of native coronary artery without angina pectoris; I25.2 Old myocardial infarction; E10.9 Type 1 diabetes mellitus without complications; I10 Essential (primary) hypertension; J44.9 Chronic obstructive pulmonary disease, unspecified; N40.0 Benign prostatic hyperplasia without lower urinary tract symptoms; Z98.61 Coronary angioplasty status; Z95.5 Presence of coronary angioplasty implant and graft; Z87.891 Personal history of nicotine dependence; Z79.82 Long term (current) use of aspirin; Z79.4 Long term (current) use of insulin; Z79.899 Other long term (current) drug therapy; Z88.1 Allergy status to other antibiotic agents; Z88.8 Allergy status to other drugs, medicaments and biological substances; Z91.040 Latex allergy status
CPT/HCPCS: 71045; 71250; 80047; 80048; 80076; 82150; 82550; 82553; 82803; 83605; 83690; 83880; 84439; 84443; 84484; 85025; 85610; 85730; 86140; 86850; 86900; 86901; 87040; 93005; 93041; 96365; 96366; 96375; 99285; J0878; J2405; U0002

== ENCOUNTER → 2020-07-24 | Outpatient (CLI) | payer SELFPAY ==
[~2020-07-24] MED LIST changes: -GLYB5TA PO; +GLYB5TAB6 PO; +MONT10TA10 PO; -MONT5TAB2 PO
== END ==
LOC: M LABSMTC 09:46
PROVIDERS: ATTEND Pediatrics
DX: Z20.822 Contact with and (suspected) exposure to COVID-19 (principal)

== ENCOUNTER → 2020-08-01 | Outpatient (CLI) | payer MEDICARE ==
[~2020-08-01] MED LIST changes: +GLYB5TA PO; -GLYB5TAB6 PO; -MONT10TA10 PO; +MONT5TAB2 PO
--- NOTE | 2020-08-01 17:48 | REP ---
INDICATION: RUE EDEMA, R/O DVT. COMPARISON: None. TECHNIQUE: Multiple ultrasonographic images of the deep venous structures of the right upper extremity were obtained to rule out deep venous thrombosis. FINDINGS: There is no abnormal echogenic material seen in any of the visualized deep venous structures of the right upper extremity. Coaptation where applicable is appropriate throughout. IMPRESSION: No evidence of DVT <Electronically signed by Massimo Hunt > 08/01/20 [id number]
== END ==
LOC: M RAD 15:46
PROVIDERS: ATTEND Nurse Practitioner
DX: R22.31 Localized swelling, mass and lump, right upper limb (principal); M79.621 Pain in right upper arm

== ENCOUNTER 2020-08-08 05:15 | Emergency (ER) | payer MEDICARE ==
[~2020-08-08] VITALS: Ht 182.9 cm; Wt 100.0 kg
[~2020-08-08 05:15] MED LIST changes: -GLYB5TA PO; +GLYB5TAB6 PO; +MONT10TA10 PO; -MONT5TAB2 PO
[2020-08-08] MEDS ORDERED: ONDANSETRON 4MG/2ML VIAL IV ONE (05:45)
[2020-08-08] MEDS ORDERED: diazePAM 10MG/2ML SYRINGE (J3360 PER 5MG) IV ONE ×2 (05:45→07:45)
[2020-08-08] MEDS: MORPHINE 4 MG/ML 1ML VIAL/SYRINGE (J2270) IV PRN ×2 (05:59→06:53)
[2020-08-08] MEDS ORDERED: ASPIRIN 81 MG CHEW TABLET PO ONE (06:00)
[2020-08-08 06:01] LABS: BASO % 0.3 % (0.0-1.0); EOS # 0.3 10^3/uL (0.0-0.5); EOS % 3.9 % (0.0-3.0); HEMATOCRIT 26.7 % (42.0-52.0); HEMOGLOBIN 7.6 g/dl (13.5-17.5); LYMPH % 12.7 % (24.0-44.0); MEAN CORPUSCULAR HGB CONC 28.5 g/dl (32.0-36.5); MEAN CORPUSCULAR VOLUME 80.9 fl (80.0-96.0); MONO # 0.8 10^3/uL (0.0-0.8); MONO % 10.4 % (0.0-5.0); NEUTROPHILS # 5.7 10^3/uL (1.5-8.5); NEUTROPHILS % 72.1 % (36.0-66.0); PLATELET COUNT, AUTOMATED 339 10^3/uL (150-450)
[2020-08-08 06:12] LABS: PROTHROMBIN TIME 13.4 SECONDS (12.5-14.3)
[2020-08-08 06:13] LABS: PARTIAL THROMBOPLASTIN TIME 37.1 SECONDS (24.2-38.5)
[2020-08-08 06:34] LABS: C REACTIVE PROTEIN QUANTITATIV 7.81 MG/DL (0.00-0.30); CALCIUM LEVEL 8.8 MG/DL (8.8-10.2); CK-MB VALUE MASS 1.5 NG/ML (<3.6); CREATININE FOR GFR 3.5 MG/DL (0.70-1.30); GLOMERULAR FILTRATION RATE 18.3 (>42); MB/CK RELATIVE INDEX 3.95 (< OR =4); POTASSIUM SERUM 4.1 MEQ/L (3.5-5.1); TROPONIN I 0.1 NG/ML (< 0.10)
--- NOTE | 2020-08-08 07:09 | REPVR ---
PROCEDURE INFORMATION: Exam: CT Chest Without Contrast; Diagnostic Exam date and time: 08/08/2020 5:36 AM Age: 75 years old Clinical indication: Chest pain; Type not specified; Additional info: Chest pain, HX of osteo of sternum TECHNIQUE: Imaging protocol: Diagnostic computed tomography of the chest without contrast. 3D rendering (Not supervised by radiologist): MIP and/or 3D reconstructed images were created by the technologist. Radiation optimization: All CT scans at this facility use at least one of these dose optimization techniques: automated exposure control; mA and/or kV adjustment per patient size (includes targeted exams where dose is matched to clinical indication); or iterative reconstruction. COMPARISON: CT Chest without contrast 05/31/2020 4:25 PM FINDINGS: Limitations: Breathing is noted on these images limiting the interpretation. Lungs: Subsegmental atelectasis is noted at the bases. Pleural spaces: Unremarkable. No pneumothorax. No pleural effusion. Heart: There has been sternal splitting, presumably with removal of the cerclage wires. Precordial clips are seen as well as coronary stents. There appears to be periosteal bony change involving the sternum better seen on the sagittal images consistent with history of osteomyelitis. The gas seen deep to the sternal manubrial articulation on the prior study has resolved. There are now gas bubbles associated with soft tissue swelling anterior to the left manubrium on axial image 20 suggesting possible presence of an abscess not seen on the previous study. Ultrasound may be helpful although MRI with contrast would provide a more global assessment of bone and soft tissue infection. Mediastinal space: A small hiatal hernia is present. Aorta: Unremarkable. No aortic aneurysm. Lymph nodes: Unremarkable. No enlarged lymph nodes. Liver: There is diffuse mild enlargement of the liver exceeding 17 cm in length and incompletely included. There are no focal liver lesions present. Pancreas: The pancreas is normal. Spleen: There is mild nonspecific splenomegaly measuring 13 cm. Adrenal glands: The adrenal glands are normal. Kidneys and ureters: An isodense 14 mm nodule protruding from the left kidney probably represents a simple cyst but is incompletely assessed on this study. This appeared to be hyperdense on the previous study probably reflecting prior hemorrhage. Bones/joints: There are diffuse enthesopathic changes consistent with benign diffuse idiopathic skeletal hyperostosis (DISH). Soft tissues: See "Heart" finding. IMPRESSION: 1. There has been sternal splitting, presumably with removal of the cerclage wires. Precordial clips are seen as well as coronary stents. There appears to be periosteal bony change involving the sternum better seen on the sagittal images consistent with history of osteomyelitis. The gas seen deep to the sternal manubrial articulation on the prior study has resolved. There are now gas bubbles associated with soft tissue swelling anterior to the left manubrium on axial image 20 suggesting possible presence of an abscess not seen on the previous study. Ultrasound may be helpful although MRI with contrast would provide a more global assessment of bone and soft tissue infection. 2. There is diffuse mild enlargement of the liver exceeding 17 cm in length and incompletely included. There are no focal liver lesions present. 3. There is mild nonspecific splenomegaly measuring 13 cm. 4. An isodense 14 mm nodule protruding from the left kidney probably represents a simple cyst but is incompletely assessed on this study. This appeared to be hyperdense on the previous study probably reflecting prior hemorrhage. COMMENTS: Consistent with the [employer]'s Incidental Findings Committee white paper (J Am Harris Radiol 2018): Any incidental renal lesion less than 1 cm or classified as too small to characterize, or any incidental cystic renal lesion characterized as simple-appearing, is likely benign. No follow-up imaging is recommended for these lesions per consensus recommendations based on imaging criteria. Electronically signed by: Salvador Beltre On 08/08/2020 07:09:19 AM
--- NOTE | 2020-08-08 08:54 | REP ---
INDICATION: ?ABSCESS ANT STERNUM. COMPARISON: None. TECHNIQUE: Anterior parasternal soft tissue sonography. FINDINGS: Scanning over the sternum demonstrates edematous changes. There is a small flat the disc shaped fluid collection in the presternal soft tissues measuring 2.7 cm right to left dimension by just 1-2 mm in thickness. There appears to be a superficial tract to the skin at this level. Also, to the left of midline there is a as complex fluid collection little deeper in the soft tissues measuring 5.8 x 1.3 x 4.3 cm compatible with a abscess. IMPRESSION: Findings consistent with a left anterior parasternal abscess of the chest wall. <Electronically signed by Orlando Anglin > 08/08/20 [id number]
[2020-08-08] MEDS ORDERED: VANCOMYCIN HCL 1,000 MG, VIAL MATE ADAPTER 1 EACH in D5W 250 ML IV ONE (10:00)
[2020-08-08] MEDS ORDERED: NORCO, ANEXSIA 5/325MG TABLET (HYDROcodone/ACETAMINOPHEN) PO ONE (10:00)
[2020-08-08 10:24] LABS: RSV AMPLIFICATION NEGATIVE (NEGATIVE)
[2020-08-08] MEDS ORDERED: diphenhydrAMINE 50MG/ML VIAL (J1200) IV STA (11:01)
[2020-08-08 11:40] VITALS: BP 168/79
[2020-08-08 11:59] LABS: CK-MB VALUE MASS 1.4 NG/ML (<3.6); MB/CK RELATIVE INDEX 4.38 (< OR =4); TROPONIN I 0.09 NG/ML (< 0.10)
--- NOTE | 2020-08-08 20:59 | ECGEPIP ---
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
--- NOTE | 2020-08-08 21:01 | ECGEPIP ---
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
== END 2020-08-08 11:44 | disposition short-term general hospital (02) ==
LOC: M ED 05:15
DX: R00.0 Tachycardia, unspecified (principal); I44.0 Atrioventricular block, first degree; L02.213 Cutaneous abscess of chest wall; R93.422 Abnormal radiologic findings on diagnostic imaging of left kidney; I25.10 Atherosclerotic heart disease of native coronary artery without angina pectoris; N18.9 Chronic kidney disease, unspecified; Z85.528 Personal history of other malignant neoplasm of kidney; Z95.1 Presence of aortocoronary bypass graft; Z79.82 Long term (current) use of aspirin; Z79.4 Long term (current) use of insulin; Z79.899 Other long term (current) drug therapy; Z88.1 Allergy status to other antibiotic agents; Z88.8 Allergy status to other drugs, medicaments and biological substances; Z91.040 Latex allergy status
CPT/HCPCS: 71250; 76604; 80048; 82550; 82553; 83880; 84484; 85025; 85610; 85730; 86140; 87040; 87631; 93005; 93041; 94760; 96365; 96375; 96376; 99285; J1200; J2270; J2405; J3360; J3370

== ENCOUNTER → 2020-11-06 | Outpatient (CLI) | payer MEDICARE ==
[2020-11-06 14:29] LABS: BASO % 0.1 % (0.0-1.0); EOS # 0.3 10^3/uL (0.0-0.5); EOS % 3.9 % (0.0-3.0); HEMATOCRIT 35.6 % (42.0-52.0); HEMOGLOBIN 10.6 g/dl (13.5-17.5); LYMPH % 12.2 % (24.0-44.0); MEAN CORPUSCULAR HEMOGLOBIN 24.5 pg (27.0-33.0); MEAN CORPUSCULAR HGB CONC 29.8 g/dl (32.0-36.5); MEAN CORPUSCULAR VOLUME 82.4 fl (80.0-96.0); MONO # 0.7 10^3/uL (0.0-0.8); MONO % 8.7 % (2.0-8.0); NEUTROPHILS # 5.9 10^3/uL (1.5-8.5); NEUTROPHILS % 74.6 % (36.0-66.0); PLATELET COUNT, AUTOMATED 242 10^3/uL (150-450); RED BLOOD COUNT 4.32 10^6/uL (4.30-6.10)
== END ==
LOC: M LAB 13:06
PROVIDERS: ATTEND Thoracic Surgery (Cardiothoracic Vascular Surgery)
DX: S21.101A Unspecified open wound of right front wall of thorax without penetration into thoracic cavity, initial encounter (principal); L08.9 Local infection of the skin and subcutaneous tissue, unspecified

== ENCOUNTER → 2021-01-14 | Outpatient (CLI) | payer MEDICARE ==
[~2021-01-14] MED LIST changes: +FERR325T19 PO; -FERR325T20 PO; +LOSA50TA28 PO; -LOSA50TA88 PO; -MONT10TA10 PO; +MONT10TA97 PO; +NAPR1CAP PO; -SM N PO
== END ==
LOC: M PLAIMG 10:55
PROVIDERS: ATTEND Physician Assistant
DX: L98.492 Non-pressure chronic ulcer of skin of other sites with fat layer exposed (principal); T81.31XD Disruption of external operation (surgical) wound, not elsewhere classified, subsequent encounter

== ENCOUNTER → 2021-05-07 | Outpatient (CLI) | payer MEDICARE ==
[~2021-05-07] MED LIST changes: -LOSA50TA28 PO; +LOSA50TA88 PO; +MONT10TA10 PO; -MONT10TA97 PO; -NAPR1CAP PO; +SM N PO
[2021-05-07 08:57] LABS: ALBUMIN 3.5 GM/DL (3.2-5.2); BILIRUBIN,TOTAL 0.3 MG/DL (0.2-1.0); CALCIUM LEVEL 8.9 MG/DL (8.8-10.2); CHOLESTEROL RISK RATIO 3.648 (<5); CREATININE FOR GFR 4.3 MG/DL (0.70-1.30); GLOMERULAR FILTRATION RATE 14.4 (>42); MAGNESIUM LEVEL 2.6 MG/DL (1.8-2.4); POTASSIUM SERUM 4.6 MEQ/L (3.5-5.1); TOTAL PROTEIN 6.6 GM/DL (6.4-8.2)
== END ==
LOC: M LAB 06:04
PROVIDERS: ATTEND Physician Assistant
DX: I48.0 Paroxysmal atrial fibrillation (principal); I50.32 Chronic diastolic (congestive) heart failure; E78.2 Mixed hyperlipidemia

== ENCOUNTER → 2021-11-29 | Outpatient (REF) | payer MEDICARE ==
[~2021-11-29] MED LIST changes: -D31000TA2 PO; +LOSA50TA28 PO; -LOSA50TA88 PO; -MONT10TA10 PO; +MONT10TA97 PO; +NAPR1CAP PO; -SM N PO; +VITA100093 PO
== END ==
LOC: M WUC 19:32
PROVIDERS: ATTEND Student in an Organized Health Care Education/Training Program
DX: R30.0 Dysuria (principal)

== ENCOUNTER → 2022-03-14 | Outpatient (REF) | payer MEDICARE ==
[~2022-03-14] MED LIST changes: +ALBU2.5V10 INH; -ALBU83IN INH
== END ==
LOC: M WUC 18:26
PROVIDERS: ATTEND Physician Assistant
DX: R35.0 Frequency of micturition (principal)

== ENCOUNTER → 2022-04-29 | Outpatient (CLI) | payer MEDICARE | LOC: M RAD 13:54 | PROVIDERS: ATTEND Internal Medicine Nephrology | DX: R33.9 Retention of urine, unspecified (principal) ==

== ENCOUNTER → 2022-05-25 | Outpatient (REF) | payer MEDICARE ==
[~2022-05-25] MED LIST changes: +ASCO500C3 PO; -PURE500C5 PO
[2022-05-25 13:49] LABS: APPEARANCE, URINE MANUAL CLOUDY (CLEAR); COLOR, URINE MANUAL YELLOW (YELLOW); PROTEIN, URINE MANUAL 3+ mg/dL (NEGATIVE)
[2022-05-25 13:50] LABS: BILIRUBIN, URINE MANUAL NEGATIVE (NEGATIVE); BLOOD URINE MANUAL POSITIVE (NEGATIVE); GLUCOSE, URINE (UA) MANUAL 1+(100 MG/DL) mg/dL (NEGATIVE); KETONE, URINE MANUAL NEGATIVE (NEGATIVE); LEUKOCYTE ESTERASE, URINE MAN POSITIVE (NEGATIVE); NITRITE, URINE MANUAL POSITIVE (NEGATIVE); UROBILINOGEN, URINE MANUAL NORMAL (NORMAL)
[2022-05-25 14:00] LABS: BACTERIA, URINE LARGE AMOUNT; HYALINE CAST, URINE NONE SEEN /lpf (0-1); RBC, URINE NONE SEEN /hpf (0-3); SQUAMOUS EPITHELIAL CELL URINE NONE SEEN /hpf (SMALL AMT); WBC, URINE TNTC /hpf (0-3)
== END ==
LOC: M SMT 13:17
PROVIDERS: ATTEND Urology
DX: R30.0 Dysuria (principal)

== ENCOUNTER → 2022-06-16 | Outpatient (CLI) | payer MEDICARE | LOC: M PLAIMG 13:17 | PROVIDERS: ATTEND Urology | DX: R33.0 Drug induced retention of urine (principal); Z90.5 Acquired absence of kidney; N28.89 Other specified disorders of kidney and ureter; M47.9 Spondylosis, unspecified; M87.351 Other secondary osteonecrosis, right femur; M87.352 Other secondary osteonecrosis, left femur; Z96.0 Presence of urogenital implants; N40.1 Benign prostatic hyperplasia with lower urinary tract symptoms ==

== ENCOUNTER → 2022-07-15 | Outpatient (REF) | payer MEDICARE ==
[2022-07-15 18:24] LABS: HEPATITIS B SURFACE ANTIBODY NEGATIVE (POSITIVE)
[2022-07-15 18:36] LABS: HEPATITIS B SURFACE ANTIGEN NEGATIVE (NEGATIVE)
[2022-07-15 18:43] LABS: CREATININE, URINE 85.8 MG/DL
[2022-07-15 18:56] LABS: HEPATITIS B CORE ANTIBODY IGM NEGATIVE (NEGATIVE)
[2022-07-15 18:57] LABS: HEPATITIS C VIRUS ABY INDEX 0.1 INDEX (<0.8)
[2022-07-15 19:01] LABS: MAU/CREAT RATIO 1363.6 MCG/MG (0.0-30.0)
== END ==
LOC: M LAB REF 17:10
PROVIDERS: ATTEND Internal Medicine Nephrology
DX: I12.0 Hypertensive chronic kidney disease with stage 5 chronic kidney disease or end stage renal disease (principal); E11.22 Type 2 diabetes mellitus with diabetic chronic kidney disease

== ENCOUNTER → 2022-07-16 | Outpatient (CLI) | payer MEDICARE | LOC: M RAD 12:28 | PROVIDERS: ATTEND Urology | DX: N28.1 Cyst of kidney, acquired (principal); Z90.5 Acquired absence of kidney ==

== ENCOUNTER → 2022-08-07 | Outpatient (CLI) | payer MEDICARE ==
[~2022-08-07] MED LIST changes: +ACET1TAB55 PO; +ACET300T48 PO; +ALLO100T PO; +ALPHTAB PO; +AMLO10TA PO; +ATOR40TA75 PO; +CALC1CAP31 PO; +D-50TAB PO; +DOCU100T8 PO; +FERR324T21 PO; +FINA1TAB12 PO; +FINA5TAB2 PO; +FLUO40CA PO; +MAGN400C2 PO; +METO100T5 PO; +PHEN1TAB73 PO; +SING10TA32 PO; +TAMS1CAP17 PO; +TURM1CAP5 PO; +VITA500T16 PO
[2022-08-07 12:23] LABS: HEMATOCRIT 35.8 % (42.0-52.0); HEMOGLOBIN 11.1 g/dl (13.5-17.5); MEAN CORPUSCULAR HEMOGLOBIN 28.7 pg (27.0-33.0); MEAN CORPUSCULAR VOLUME 92.5 fl (80.0-96.0); PLATELET COUNT, AUTOMATED 175 10^3/uL (150-450); RED BLOOD COUNT 3.87 10^6/uL (4.30-6.10); WHITE BLOOD COUNT 7.5 10^3/uL (4.0-10.0)
[2022-08-07 12:31] LABS: HEMOGLOBIN A1c 6.7 % (4.0-6.0)
[2022-08-07 12:46] LABS: PROTHROMBIN TIME 13.4 SECONDS (12.5-14.5)
[2022-08-07 12:51] LABS: ALBUMIN 3.9 G/DL (3.2-5.2); BILIRUBIN,TOTAL 0.9 MG/DL (0.3-1.2); CALCIUM LEVEL 9.3 MG/DL (8.3-10.6); CHOLESTEROL RISK RATIO 3.82 (<5); CREATININE FOR GFR 3.02 MG/DL (0.70-1.30); GLOMERULAR FILTRATION RATE 21.5 (>42); HDL CHOLESTEROL 38.4 MG/DL (>40); LDL CHOLESTEROL 57.2 MG/DL (<100); POTASSIUM SERUM 3.7 MMOL/L (3.5-5.1); TOTAL PROTEIN 6.9 G/DL (5.7-8.2)
[2022-08-07 12:54] LABS: THYROID STIMULATING HORMONE 1.22 uIU/ML (0.55-4.78)
== END ==
LOC: M RAD 11:18 → M LAB 11:18
PROVIDERS: ATTEND Family Medicine
DX: Z01.818 Encounter for other preprocedural examination (principal); I10 Essential (primary) hypertension; E11.9 Type 2 diabetes mellitus without complications; I77.819 Aortic ectasia, unspecified site; Z95.5 Presence of coronary angioplasty implant and graft; I44.0 Atrioventricular block, first degree; I51.7 Cardiomegaly

== ENCOUNTER → 2022-08-07 | Outpatient (CLI) | payer MEDICARE ==
[~2022-08-07] MED LIST changes: -ALPHTAB PO; -FINA1TAB12 PO; -MAGN400C2 PO; -PHEN1TAB73 PO; -TURM1CAP5 PO
[2022-08-07 12:23] LABS: HEMATOCRIT 36.1 % (42.0-52.0); HEMOGLOBIN 11.2 g/dl (13.5-17.5); MEAN CORPUSCULAR HEMOGLOBIN 28.7 pg (27.0-33.0); MEAN CORPUSCULAR VOLUME 92.6 fl (80.0-96.0); PLATELET COUNT, AUTOMATED 177 10^3/uL (150-450); WHITE BLOOD COUNT 7.4 10^3/uL (4.0-10.0)
[2022-08-07 12:46] LABS: PROTHROMBIN TIME 13.4 SECONDS (12.5-14.5)
[2022-08-07 12:50] LABS: ALBUMIN 3.8 G/DL (3.2-5.2); CALCIUM LEVEL 9.2 MG/DL (8.3-10.6); GLOMERULAR FILTRATION RATE 21.7 (>42); POTASSIUM SERUM 3.7 MMOL/L (3.5-5.1); TOTAL PROTEIN 7.1 G/DL (5.7-8.2)
== END ==
LOC: M RAD 11:21
PROVIDERS: ATTEND Urology
DX: R33.9 Retention of urine, unspecified (principal)

== ENCOUNTER → 2022-08-07 | Outpatient (CLI) | payer MEDICARE ==
[~2022-08-07] MED LIST changes: +ALPHTAB PO; +FINA1TAB12 PO; +MAGN400C2 PO; +PHEN1TAB73 PO; +TURM1CAP5 PO
[2022-08-07 12:23] LABS: HEMOGLOBIN 11.2 g/dl (13.5-17.5); MEAN CORPUSCULAR HGB CONC 31.1 g/dl (32.0-36.5); MEAN CORPUSCULAR VOLUME 93.3 fl (80.0-96.0); PLATELET COUNT, AUTOMATED 176 10^3/uL (150-450); RED BLOOD COUNT 3.86 10^6/uL (4.30-6.10); WHITE BLOOD COUNT 7.5 10^3/uL (4.0-10.0)
[2022-08-07 12:47] LABS: URIC ACID 2.6 MG/DL (3.7-9.2)
[2022-08-07 12:50] LABS: ALBUMIN 3.9 G/DL (3.2-5.2); CALCIUM LEVEL 9.1 MG/DL (8.3-10.6); GLOMERULAR FILTRATION RATE 21.7 (>42); POTASSIUM SERUM 3.6 MMOL/L (3.5-5.1)
[2022-08-07 15:08] LABS: PTH INTACT 413.1 PG/ML (18.5-88.0)
== END ==
LOC: M LAB 11:24
PROVIDERS: ATTEND Physician Assistant
DX: Z01.810 Encounter for preprocedural cardiovascular examination (principal)

== ENCOUNTER → 2022-08-10 | Outpatient (REF) | payer MEDICARE ==
[~2022-08-10] MED LIST changes: +ACET300T48; +NITR100C2
== END ==
LOC: M SMT 13:22
PROVIDERS: ATTEND Urology
DX: R33.9 Retention of urine, unspecified (principal)

== ENCOUNTER 2022-08-16 11:00 | Emergency (ER) | payer MEDICARE ==
[~2022-08-16] VITALS: Ht 180.3 cm; Wt 110.2 kg
[~2022-08-16 11:00] MED LIST changes: -ACET300T48; -NITR100C2
[2022-08-16] MEDS ORDERED: NITR100C2 (11:19)
[2022-08-16] MEDS ORDERED: ACET300T48 (11:19)
[2022-08-16] MEDS ORDERED: LIDOCAINE 2% 5ML JELLY UROJET TOP ONE (11:50)
[2022-08-16 13:35] VITALS: BP 144/65
== END 2022-08-16 13:35 | disposition home or self-care (01) ==
LOC: M ED 11:00
DX: T83.021A Displacement of indwelling urethral catheter, initial encounter (principal); E11.9 Type 2 diabetes mellitus without complications; I10 Essential (primary) hypertension; Z87.891 Personal history of nicotine dependence; Z88.1 Allergy status to other antibiotic agents; Z88.6 Allergy status to analgesic agent; Z91.040 Latex allergy status; Z79.02 Long term (current) use of antithrombotics/antiplatelets; Z79.4 Long term (current) use of insulin; Z79.899 Other long term (current) drug therapy

== ENCOUNTER → 2022-08-16 | Outpatient (CLI) | payer MEDICARE | LOC: M LABSMTC 11:55 | PROVIDERS: ATTEND Anesthesiology | DX: Z01.812 Encounter for preprocedural laboratory examination (principal); Z11.52 Encounter for screening for COVID-19 ==

== ENCOUNTER 2022-08-20 11:38 | Day surgery (SDC) | payer MEDICARE ==
[~2022-08-20] VITALS: Ht 180.3 cm; Wt 109.3 kg
[~2022-08-20 11:38] MED LIST changes: +ACET300T48; +NITR100C2
[2022-08-20] MEDS ORDERED: MIDAZOLAM INJ 2MG/2ML VIAL As Ordered ONE (12:15)
[2022-08-20] MEDS ORDERED: ROCURONIUM BROMIDE 50MG/5ML VIAL As Ordered ONE (12:15)
[2022-08-20] MEDS ORDERED: fentaNYL 100 MCG/2 ML INJECTION As Ordered ONE ×3 (12:15→15:23)
[2022-08-20] MEDS ORDERED: propofoL 200 MG/20 ML VIAL As Ordered ONE (12:15)
[2022-08-20] MEDS ORDERED: LIDOCAINE 2% 100MG/5ML SDV (FOR ANES.) As Ordered ONE ×2 (12:15→12:16)
[2022-08-20] MEDS ORDERED: ONDANSETRON 4MG 2ML VIAL As Ordered ONE (12:16)
[2022-08-20] MEDS ORDERED: LR 1,000 ML IV SCH ×2 (12:20→14:15)
[2022-08-20] MEDS ORDERED: D5W/0.2% SODIUM CHLORIDE 1,000 ML IV SCH (12:25)
[2022-08-20] MEDS ORDERED: CIPROFLOXACIN 400 MG in IV 1 EA IV ONE (13:00)
[2022-08-20] MEDS ORDERED: ONDANSETRON 4MG 2ML VIAL IV PRN (14:15)
[2022-08-20] MEDS ORDERED: oxyCODONE 5MG TAB PO PRN (14:15)
[2022-08-20] MEDS ORDERED: OXYB5TAB10 PO (14:23)
[2022-08-20] MEDS ORDERED: MACR100C43 PO (14:23)
[2022-08-20] MEDS ORDERED: ePHEDrine SULFATE 25 MG/5 ML(5MG/ML) SYRINGE As Ordered ONE (14:30)
[2022-08-20] MEDS: HYDROMORPHONE HCL 0.5 MG/ 0.5 ML SYRINGE IV PRN ×2 (15:13→15:24)
[2022-08-20 16:18] VITALS: BP 123/60
== END 2022-08-20 16:35 | disposition home or self-care (01) ==
LOC: M SDC 11:38
PROVIDERS: ATTEND Urology
DX: N40.1 Benign prostatic hyperplasia with lower urinary tract symptoms (principal); R33.9 Retention of urine, unspecified; E11.9 Type 2 diabetes mellitus without complications; N18.6 End stage renal disease; Z98.61 Coronary angioplasty status; Z79.4 Long term (current) use of insulin; Z79.84 Long term (current) use of oral hypoglycemic drugs; Z79.899 Other long term (current) drug therapy; Z79.82 Long term (current) use of aspirin; Z88.5 Allergy status to narcotic agent; Z88.8 Allergy status to other drugs, medicaments and biological substances; Z88.1 Allergy status to other antibiotic agents; Z87.891 Personal history of nicotine dependence; Z85.528 Personal history of other malignant neoplasm of kidney
CPT/HCPCS: 36415; 52601; 84132; 88305; J1100; J1170; J2405; J3010

== ENCOUNTER 2022-08-23 23:04 | Emergency (ER) | payer MEDICARE ==
[~2022-08-23 23:04] MED LIST changes: +MACR100C43 PO; +OXYB5TAB10 PO
[2022-08-24] MEDS ORDERED: LIDOCAINE 2% 5ML JELLY UROJET TOP ONE ×2 (00:05)
[2022-08-24] MEDS ORDERED: FLEET OIL RETENTION ENEMA PR ONE (00:30)
[2022-08-24 01:43] VITALS: BP 136/78
== END 2022-08-24 01:45 | disposition home or self-care (01) ==
LOC: EDBD 23:04 → M ED 23:04
DX: K62.89 Other specified diseases of anus and rectum (principal); K59.00 Constipation, unspecified; E78.5 Hyperlipidemia, unspecified; E11.9 Type 2 diabetes mellitus without complications; J44.9 Chronic obstructive pulmonary disease, unspecified; I25.2 Old myocardial infarction; F17.200 Nicotine dependence, unspecified, uncomplicated; Z79.84 Long term (current) use of oral hypoglycemic drugs; Z79.4 Long term (current) use of insulin; Z86.79 Personal history of other diseases of the circulatory system; Z88.6 Allergy status to analgesic agent; Z91.040 Latex allergy status; Z79.899 Other long term (current) drug therapy

== ENCOUNTER 2023-02-12 23:47 | Emergency (ER) | payer MEDICARE ==
[~2023-02-12 23:47] MED LIST changes: -ACET300T48; +MONT-5 PO; -SING10TA32 PO
[2023-02-12 23:53] VITALS: BP 148/89; TEMP 97.8; O2SAT 98
[2023-02-13] MEDS ORDERED: PRED10TA2 PO (18:02)
[2023-02-13] MEDS ORDERED: FINA5TAB2 PO (18:02)
[2023-02-13] MEDS ORDERED: VELP5CHW PO (18:02)
[2023-02-13] MEDS ORDERED: ASPI-161 PO (18:02)
[2023-02-13] MEDS ORDERED: MONT10TA97 PO (18:02)
[2023-02-13] MEDS ORDERED: LIDO30CR18 TOP (18:02)
== END 2023-02-13 03:15 | disposition left against medical advice (07) ==
LOC: M ED 23:47
DX: Z53.21 Procedure and treatment not carried out due to patient leaving prior to being seen by health care provider (principal)

== ENCOUNTER 2023-02-13 02:40 | Inpatient (IN) | payer MEDICARE ==
[~2023-02-13] VITALS: Ht 172.7 cm; Wt 109.0 kg
[2023-02-13] VITALS (11 sets, daily range): BP systolic 155–210; BP diastolic 67–84; TEMP 97.9–102.2; O2SAT 77–98
[2023-02-13] MEDS ORDERED: NS 500 ML IV ONE (04:20)
[2023-02-13] MEDS ORDERED: ACETAMINOPHEN TAB 650MG DOSE (2X325MG) PO ONE (04:20)
[2023-02-13 05:00] LABS: BASO % 0.1 % (0.0-1.0); HEMATOCRIT 39.3 % (42.0-52.0); HEMOGLOBIN 12.6 g/dl (13.5-17.5); LYMPH # 0.2 10^3/uL (1.5-5.0); LYMPH % 1.4 % (24.0-44.0); MEAN CORPUSCULAR HEMOGLOBIN 30.4 pg (27.0-33.0); MEAN CORPUSCULAR HGB CONC 32.1 g/dl (32.0-36.5); MEAN CORPUSCULAR VOLUME 94.7 fl (80.0-96.0); MONO # 0.6 10^3/uL (0.0-0.8); MONO % 3.6 % (2.0-8.0); NEUTROPHILS # 14.2 10^3/uL (1.5-8.5); PLATELET COUNT, AUTOMATED 168 10^3/uL (150-450); RED BLOOD COUNT 4.15 10^6/uL (4.30-6.10); WHITE BLOOD COUNT 15.1 10^3/uL (4.0-10.0)
[2023-02-13 05:23] LABS: LIPASE 31 U/L (12-53)
[2023-02-13 05:26] LABS: ALBUMIN 3.3 G/DL (3.2-5.2); ALKALINE PHOSPHATASE 75 U/L (46-116); ALT/SGPT 12 U/L (7.0-40); AST/SGOT 11 U/L (<34); BILIRUBIN,DIRECT 0.2 MG/DL (<0.4); BILIRUBIN,TOTAL 0.5 MG/DL (0.3-1.2); BLOOD UREA NITROGEN 69 MG/DL (9-23); CALCIUM LEVEL 8.4 MG/DL (8.3-10.6); CARBON DIOXIDE LEVEL 21 MMOL/L (20-31); CHLORIDE LEVEL 101 MMOL/L (98-107); CK-MB VALUE MASS < 1.0 NG/ML (<3.6); CREATININE FOR GFR 5.39 MG/DL (0.70-1.30); GLUCOSE, FASTING 211 MG/DL (74-106); SODIUM LEVEL 135 MMOL/L (136-145); TOTAL PROTEIN 6.5 G/DL (5.7-8.2)
[2023-02-13 05:43] LABS: CPK CREATINE PHOSPHOKINASE 44 U/L (46-171); MB/CK RELATIVE INDEX 2.27 (< OR =4)
[2023-02-13] MEDS ORDERED: PIPERACILLIN/TAZOBACTAM SOD 4.5 GM in D5W MINI-BAG PLUS 50 ML IV ONE (07:00)
[2023-02-13] MEDS ORDERED: ACETAMINOPHEN 325 MG TAB As Ordered ONE (08:04)
[2023-02-13] MEDS ORDERED: AZTREONAM 2 GM in D5W MINI-BAG PLUS 100 ML IV SCH ×2 (08:05→20:00)
[2023-02-13] MEDS: ACETAMINOPHEN TAB 650MG DOSE (2X325MG) PO PRN ×2 (08:10→17:43)
[2023-02-13] MEDS: IBUPROFEN 800 MG TAB PO PRN ×2 (08:10→17:43)
[2023-02-13 08:44] LABS: ERYTHROCYTE SEDIMENTATION RATE 54 mm/hr (0-20)
[2023-02-13 08:52] LABS: PROCALCITONIN 16.87 ng/ml
[2023-02-13] MEDS ORDERED: MED REC IN PROGRESS XX SCH (09:45)
[2023-02-13] MEDS ORDERED: VANCOMYCIN HCL 1,000 MG, VIAL MATE ADAPTER 1 EACH in D5W 250 ML IV ONE ×2 (10:00→11:00)
[2023-02-13] MEDS ORDERED: HEPARIN 1,000UNITS/ML 10ML VIAL (FOR RADIOLOGY & DIALYSIS ONLY) XX SCH (10:50)
[2023-02-13] MEDS ORDERED: SODIUM CHLORIDE 0.9% 1000ML IV PRN (10:50)
[2023-02-13] MEDS ORDERED: LIDOCAINE 1% SDV 5ML VIAL SC PRN (10:50)
[2023-02-13] MEDS ORDERED: HEPARIN 1,000UNITS/ML 10ML VIAL (FOR RADIOLOGY & DIALYSIS ONLY) IV PRN (10:50)
[2023-02-13] MEDS ORDERED: AZTREONAM 2 GM in D5W MINI-BAG PLUS 100 ML IV ONE (12:00)
[2023-02-13] MEDS ORDERED: VANCOMYCIN INTERMITTENT/PULSE DOSING BY CLINICAL PHARMACIST PER DOSING PROTOCOL XX SCH (14:20)
[2023-02-13] MEDS ORDERED: LIDO30CR18 TOP (18:02)
[2023-02-13] MEDS ORDERED: VELP5CHW PO (18:02)
[2023-02-13] MEDS ORDERED: MONT10TA97 PO (18:02)
[2023-02-13] MEDS ORDERED: FINA5TAB2 PO (18:02)
[2023-02-13] MEDS ORDERED: ASPI-161 PO (18:02)
[2023-02-13] MEDS ORDERED: PRED10TA2 PO (18:02)
[2023-02-13] MEDS ORDERED: HOME MED LIST COMPLETE! XX SCH (18:05)
[2023-02-13] MEDS ORDERED: MORPHINE 2 MG/ML 1ML VIAL IV ONE (18:10)
[2023-02-13] MEDS ORDERED: hydrALAZINE 20MG/ML 1ML VIAL IV ONE (18:10)
[2023-02-13] MEDS ORDERED: MORPHINE 2 MG/ML 1ML VIAL As Ordered ONE (18:11)
[2023-02-13 18:58] LABS: ABG BASE EXCESS -0.5 (-2.0-2.0); ABG HCO3 20.6 MMOL/L (22.0-26.0); ABG O2 SATURATION 95.4 % (95.0-99.0); ABG PARTIAL PRESSURE CO2 24.8 mmHg (35.0-45.0); ABG PARTIAL PRESSURE O2 69.5 mmHg (75.0-100.0); ABG STANDARD HCO3 24.1 MMOL/L. (22.0-26.0); ABG TOTAL CO2 21.4 MMOL/L (23.0-31.0); ABG pH (ARTERIAL) 7.538 UNITS (7.350-7.450)
[2023-02-13] MEDS ORDERED: ISOVUE-370 76% 100ML VIAL As Ordered ONE ×2 (18:59→21:39)
[2023-02-13 19:26] LABS: CALCIUM LEVEL 8.8 MG/DL (8.3-10.6); CREATININE FOR GFR 3.31 MG/DL (0.70-1.30); GLOMERULAR FILTRATION RATE 19.4 (>42); MAGNESIUM LEVEL 2.1 MG/DL (1.8-2.4); POTASSIUM SERUM 4.3 MMOL/L (3.5-5.1)
[2023-02-13] MEDS ORDERED: LABETALOL 100MG/20ML VIAL IV ONE (20:00)
[2023-02-13] MEDS ORDERED: PIPERACILLIN/TAZOBACTAM SOD 4.5 GM in D5W MINI-BAG PLUS 50 ML IV SCH (21:00)
[2023-02-13] MEDS: HEPARIN SOD (PORCINE) 5000UNITS/ML 1ML VIAL/SYRINGE SC SCH (22:25)
[2023-02-13] MEDS: PIPERACILLIN/TAZOBACTAM SOD 4.5 GM in D5W MINI-BAG PLUS 50 ML IV SCH (22:25)
[2023-02-14] VITALS: BP 164/82; TEMP 99; O2SAT 96
[2023-02-14] MEDS: ACETAMINOPHEN TAB 650MG DOSE (2X325MG) PO PRN ×2 (03:40→20:07)
[2023-02-14 04:00] VITALS: BP 166/58; TEMP 98.2; O2SAT 97
[2023-02-14 05:51] LABS: BASO % 0.2 % (0.0-1.0); HEMATOCRIT 35.8 % (42.0-52.0); HEMOGLOBIN 11.7 g/dl (13.5-17.5); LYMPH # 0.2 10^3/uL (1.5-5.0); LYMPH % 2.4 % (24.0-44.0); MEAN CORPUSCULAR HGB CONC 32.7 g/dl (32.0-36.5); MONO # 0.4 10^3/uL (0.0-0.8); MONO % 5.7 % (2.0-8.0); NEUTROPHILS # 5.8 10^3/uL (1.5-8.5); NEUTROPHILS % 90.8 % (36.0-66.0); PLATELET COUNT, AUTOMATED 106 10^3/uL (150-450); RED BLOOD COUNT 3.77 10^6/uL (4.30-6.10); WHITE BLOOD COUNT 6.4 10^3/uL (4.0-10.0)
[2023-02-14 06:27] LABS: VANCOMYCIN RANDOM 11.2 UG/ML
[2023-02-14 06:28] LABS: CALCIUM LEVEL 8.1 MG/DL (8.3-10.6); CREATININE FOR GFR 4.05 MG/DL (0.70-1.30); GLOMERULAR FILTRATION RATE 15.4 (>42); MAGNESIUM LEVEL 2.4 MG/DL (1.8-2.4); POTASSIUM SERUM 4.3 MMOL/L (3.5-5.1)
[2023-02-14] MEDS: HEPARIN SOD (PORCINE) 5000UNITS/ML 1ML VIAL/SYRINGE SC SCH ×3 (06:33→20:06)
[2023-02-14] MEDS ORDERED: HumuLIN R (REGULAR) INSULIN (NovoLIN R) **100U/ML** PER UNIT SC STA (06:55)
[2023-02-14] MEDS ORDERED: DEXTROSE 50% 50ML SYRINGE IV PRN (06:55)
[2023-02-14] MEDS ORDERED: GLUCOSE 4GM CHEW TABLET PO PRN (06:55)
[2023-02-14] MEDS ORDERED: GLUCAGON INJ 1MG VIAL SC PRN (06:55)
[2023-02-14] MEDS: PIPERACILLIN/TAZOBACTAM SOD 4.5 GM in D5W MINI-BAG PLUS 50 ML IV SCH ×2 (08:21→20:06)
[2023-02-14] MEDS: ASPIRIN 81MG ENTERIC TABLET PO SCH (08:22)
[2023-02-14] MEDS: allopurinoL 100 MG TAB PO SCH (08:22)
[2023-02-14] MEDS: FLUoxetine 20MG CAP PO SCH (08:23)
[2023-02-14] MEDS: FINASTERIDE 5MG TAB PO SCH (08:23)
[2023-02-14] MEDS: METOPROLOL TARTRATE 100MG TAB PO SCH (08:23)
[2023-02-14] MEDS ORDERED: FUROSEMIDE 80 MG TAB PO SCH (09:00)
[2023-02-14] MEDS ORDERED: VANCOMYCIN HCL 1,000 MG, VIAL MATE ADAPTER 1 EACH in D5W 250 ML IV ONE (10:00)
[2023-02-14] MEDS: IBUPROFEN 800 MG TAB PO PRN (10:50)
[2023-02-14] MEDS: INSULIN LISPRO (NovoLOG) PER UNIT SC SCH ×4 (10:51→19:54)
[2023-02-14] MEDS ORDERED: INSULIN LISPRO (NovoLOG) PER UNIT SC SCH (12:00)
[2023-02-14 14:04] VITALS: BP 166/64; TEMP 98.1
[2023-02-14] MEDS: MORPHINE 2 MG/ML 1ML VIAL IV PRN (15:13)
[2023-02-14 17:29] VITALS: BP 168/62; TEMP 98.1; O2SAT 96
[2023-02-14 19:20] VITALS: BP 166/74; TEMP 97.5; O2SAT 96
[2023-02-14] MEDS ORDERED: MAALOX 30 ML SUSP *UDC PO ONE (19:45)
[2023-02-14] MEDS: ATORVASTATIN 20 MG TAB PO SCH (20:07)
[2023-02-14] MEDS: TAMSULOSIN 0.4 MG CAP PO SCH (20:07)
[2023-02-14] MEDS ORDERED: BISACODYL 10MG SUPP PR ONE (22:00)
[2023-02-14] MEDS ORDERED: MOM 30ML SUSPENSION UDC PO PRN (22:00)
[2023-02-14] MEDS: SUCRALFATE SUSP 1GM/10ML UD PO PRN (22:04)
[2023-02-14 23:52] VITALS: BP 170/76; TEMP 97.1; O2SAT 93
[2023-02-15] VITALS (7 sets, daily range): BP systolic 132–192; BP diastolic 58–86; TEMP 96.7–98.7; O2SAT 85–96
[2023-02-15] MEDS ORDERED: cloNIDine 0.2 MG TAB PO ONE (01:30)
[2023-02-15 04:26] LABS: BASO % 0.2 % (0.0-1.0); EOS % 0.3 % (0.0-3.0); HEMATOCRIT 35.6 % (42.0-52.0); HEMOGLOBIN 11.6 g/dl (13.5-17.5); LYMPH # 0.4 10^3/uL (1.5-5.0); LYMPH % 6.1 % (24.0-44.0); MEAN CORPUSCULAR HEMOGLOBIN 30.6 pg (27.0-33.0); MEAN CORPUSCULAR HGB CONC 32.6 g/dl (32.0-36.5); MEAN CORPUSCULAR VOLUME 93.9 fl (80.0-96.0); MONO # 0.5 10^3/uL (0.0-0.8); MONO % 9.2 % (2.0-8.0); NEUTROPHILS # 4.8 10^3/uL (1.5-8.5); NEUTROPHILS % 83.3 % (36.0-66.0); PLATELET COUNT, AUTOMATED 104 10^3/uL (150-450); RED BLOOD COUNT 3.79 10^6/uL (4.30-6.10); WHITE BLOOD COUNT 5.7 10^3/uL (4.0-10.0)
[2023-02-15 04:51] LABS: CALCIUM LEVEL 8.1 MG/DL (8.3-10.6); CREATININE FOR GFR 4.77 MG/DL (0.70-1.30); GLOMERULAR FILTRATION RATE 12.7 (>42); MAGNESIUM LEVEL 2.8 MG/DL (1.8-2.4); POTASSIUM SERUM 4.9 MMOL/L (3.5-5.1); VANCOMYCIN RANDOM 17.1 UG/ML
[2023-02-15] MEDS ORDERED: LIDOCAINE 1% SDV 5ML VIAL SC PRN (06:00)
[2023-02-15] MEDS ORDERED: SODIUM CHLORIDE 0.9% 1000ML IV PRN (06:00)
[2023-02-15] MEDS ORDERED: HEPARIN 1,000UNITS/ML 10ML VIAL (FOR RADIOLOGY & DIALYSIS ONLY) IV PRN (06:00)
[2023-02-15] MEDS ORDERED: HEPARIN 1,000UNITS/ML 10ML VIAL (FOR RADIOLOGY & DIALYSIS ONLY) XX SCH (06:00)
[2023-02-15] MEDS: allopurinoL 100 MG TAB PO SCH (06:21)
[2023-02-15] MEDS: FINASTERIDE 5MG TAB PO SCH (06:21)
[2023-02-15] MEDS: ASPIRIN 81MG ENTERIC TABLET PO SCH (06:21)
[2023-02-15] MEDS: HEPARIN SOD (PORCINE) 5000UNITS/ML 1ML VIAL/SYRINGE SC SCH ×3 (06:22→20:45)
[2023-02-15] MEDS: ACETAMINOPHEN TAB 650MG DOSE (2X325MG) PO PRN (06:22)
[2023-02-15] MEDS: INSULIN LISPRO (NovoLOG) PER UNIT SC SCH ×4 (07:30→20:44)
[2023-02-15 08:49] LABS: C REACTIVE PROTEIN QUANTITATIV 35.8 MG/DL (<1.0)
[2023-02-15 08:58] LABS: ERYTHROCYTE SEDIMENTATION RATE 64 mm/hr (0-20)
[2023-02-15] MEDS: MORPHINE 2 MG/ML 1ML VIAL IV PRN (09:02)
[2023-02-15] MEDS: PIPERACILLIN/TAZOBACTAM SOD 4.5 GM in D5W MINI-BAG PLUS 50 ML IV SCH ×2 (12:39→20:38)
[2023-02-15] MEDS: METOPROLOL TARTRATE 100MG TAB PO SCH (12:39)
[2023-02-15] MEDS: FLUoxetine 20MG CAP PO SCH (12:39)
[2023-02-15] MEDS ORDERED: VANCOMYCIN HCL 1,000 MG, VIAL MATE ADAPTER 1 EACH in D5W 250 ML IV SCH (16:00)
[2023-02-15 16:40] LABS: ABG BASE EXCESS 2.6 (-2.0-2.0); ABG HCO3 24.7 MMOL/L (22.0-26.0); ABG O2 SATURATION 94.7 % (95.0-99.0); ABG PARTIAL PRESSURE O2 66.8 mmHg (75.0-100.0); ABG STANDARD HCO3 26.7 MMOL/L. (22.0-26.0); ABG TOTAL CO2 25.6 MMOL/L (23.0-31.0); ABG pH (ARTERIAL) 7.533 UNITS (7.350-7.450)
[2023-02-15] MEDS: ATORVASTATIN 20 MG TAB PO SCH (20:38)
[2023-02-15] MEDS: TAMSULOSIN 0.4 MG CAP PO SCH (20:38)
[2023-02-15] MEDS: IBUPROFEN 800 MG TAB PO PRN (23:42)
[2023-02-16] VITALS (33 sets, daily range): BP systolic 130–180; BP diastolic 54–78; TEMP 96.3–99.5; O2SAT 82–98
[2023-02-16] MEDS ORDERED: LABETALOL 100MG/20ML VIAL IV ONE (04:45)
[2023-02-16] MEDS: HEPARIN SOD (PORCINE) 5000UNITS/ML 1ML VIAL/SYRINGE SC SCH ×2 (05:18→20:26)
[2023-02-16 05:55] LABS: EOS % 0.3 % (0.0-3.0); HEMOGLOBIN 10.4 g/dl (13.5-17.5); LYMPH # 0.6 10^3/uL (1.5-5.0); LYMPH % 9.7 % (24.0-44.0); MEAN CORPUSCULAR HEMOGLOBIN 30.5 pg (27.0-33.0); MEAN CORPUSCULAR HGB CONC 32.5 g/dl (32.0-36.5); MEAN CORPUSCULAR VOLUME 93.8 fl (80.0-96.0); MONO # 0.7 10^3/uL (0.0-0.8); NEUTROPHILS # 4.9 10^3/uL (1.5-8.5); NEUTROPHILS % 77.9 % (36.0-66.0); PLATELET COUNT, AUTOMATED 111 10^3/uL (150-450); RED BLOOD COUNT 3.41 10^6/uL (4.30-6.10); WHITE BLOOD COUNT 6.3 10^3/uL (4.0-10.0)
[2023-02-16 06:28] LABS: CALCIUM LEVEL 8.2 MG/DL (8.3-10.6); CREATININE FOR GFR 4.04 MG/DL (0.70-1.30); GLOMERULAR FILTRATION RATE 15.4 (>42); MAGNESIUM LEVEL 2.7 MG/DL (1.8-2.4)
[2023-02-16] MEDS ORDERED: oxyCODONE 5MG TAB PO PRN (08:05)
[2023-02-16] MEDS: FLUoxetine 20MG CAP PO SCH (08:52)
[2023-02-16] MEDS: INSULIN LISPRO (NovoLOG) PER UNIT SC SCH ×4 (08:52→20:26)
[2023-02-16] MEDS: allopurinoL 100 MG TAB PO SCH (08:53)
[2023-02-16] MEDS: FINASTERIDE 5MG TAB PO SCH (08:53)
[2023-02-16] MEDS: METOPROLOL TARTRATE 100MG TAB PO SCH (08:53)
[2023-02-16] MEDS: PIPERACILLIN/TAZOBACTAM SOD 4.5 GM in D5W MINI-BAG PLUS 50 ML IV SCH (08:54)
[2023-02-16] MEDS: ceFAZolin SOD 1 GM in D5W MINI-BAG PLUS 50 ML IV SCH (17:02)
[2023-02-16] MEDS: LEVEMIR (INSULIN DETEMIR) 1 UNITS/0.01ML SC SCH (17:21)
[2023-02-16] MEDS: SUCROFERRIC OXYHYDROXIDE 500MG CHEW TAB (VELPHORO) PO SCH (17:31)
[2023-02-16] MEDS: SUCRALFATE SUSP 1GM/10ML UD PO PRN (19:25)
[2023-02-16] MEDS: TAMSULOSIN 0.4 MG CAP PO SCH (20:27)
[2023-02-16] MEDS: ATORVASTATIN 20 MG TAB PO SCH (20:27)
[2023-02-17] VITALS (12 sets, daily range): BP systolic 156–178; BP diastolic 68–72; TEMP 97.2–99.4; O2SAT 91–96
[2023-02-17] MEDS: FINASTERIDE 5MG TAB PO SCH (05:25)
[2023-02-17] MEDS: FLUoxetine 20MG CAP PO SCH (05:25)
[2023-02-17] MEDS: HEPARIN SOD (PORCINE) 5000UNITS/ML 1ML VIAL/SYRINGE SC SCH ×2 (05:26→20:27)
[2023-02-17 05:53] LABS: BASO % 0.2 % (0.0-1.0); EOS % 0.2 % (0.0-3.0); HEMATOCRIT 31.5 % (42.0-52.0); HEMOGLOBIN 10.1 g/dl (13.5-17.5); LYMPH # 0.6 10^3/uL (1.5-5.0); LYMPH % 7.9 % (24.0-44.0); MEAN CORPUSCULAR HGB CONC 32.1 g/dl (32.0-36.5); MEAN CORPUSCULAR VOLUME 93.5 fl (80.0-96.0); MONO # 0.7 10^3/uL (0.0-0.8); MONO % 8.4 % (2.0-8.0); NEUTROPHILS # 6.7 10^3/uL (1.5-8.5); NEUTROPHILS % 81.9 % (36.0-66.0); PLATELET COUNT, AUTOMATED 131 10^3/uL (150-450); RED BLOOD COUNT 3.37 10^6/uL (4.30-6.10); WHITE BLOOD COUNT 8.1 10^3/uL (4.0-10.0)
[2023-02-17 06:16] LABS: ERYTHROCYTE SEDIMENTATION RATE 90 mm/hr (0-20)
[2023-02-17 06:19] LABS: CALCIUM LEVEL 7.8 MG/DL (8.3-10.6); CREATININE FOR GFR 4.77 MG/DL (0.70-1.30); GLOMERULAR FILTRATION RATE 12.7 (>42); POTASSIUM SERUM 4.4 MMOL/L (3.5-5.1)
[2023-02-17 06:28] LABS: C REACTIVE PROTEIN QUANTITATIV 23.7 MG/DL (<1.0)
[2023-02-17] MEDS: SUCRALFATE SUSP 1GM/10ML UD PO PRN (06:37)
[2023-02-17 06:57] LABS: HEMOGLOBIN A1c 8.3 % (4.0-6.0)
[2023-02-17] MEDS: SUCROFERRIC OXYHYDROXIDE 500MG CHEW TAB (VELPHORO) PO SCH ×3 (07:01→17:23)
[2023-02-17] MEDS ORDERED: SODIUM CHLORIDE 0.9% 1000ML IV PRN (08:05)
[2023-02-17] MEDS ORDERED: HEPARIN 1,000UNITS/ML 10ML VIAL (FOR RADIOLOGY & DIALYSIS ONLY) IV PRN (08:05)
[2023-02-17] MEDS ORDERED: HEPARIN 1,000UNITS/ML 10ML VIAL (FOR RADIOLOGY & DIALYSIS ONLY) XX SCH (08:05)
[2023-02-17] MEDS ORDERED: LIDOCAINE 1% SDV 5ML VIAL SC PRN (08:05)
[2023-02-17] MEDS: INSULIN LISPRO (NovoLOG) PER UNIT SC SCH ×4 (08:15→20:36)
[2023-02-17] MEDS: LEVEMIR (INSULIN DETEMIR) 1 UNITS/0.01ML SC SCH (08:16)
[2023-02-17] MEDS: oxyCODONE 5MG TAB PO PRN ×2 (08:17→20:28)
[2023-02-17] MEDS ORDERED: BISACODYL 10MG SUPP PR PRN (09:25)
[2023-02-17] MEDS: DARBEPOETIN 100MCG/0.5ML *DIALYSIS* SYRINGE IV SCH (09:43)
[2023-02-17] MEDS ORDERED: PILL CUTTER 1 EACH XX PRN (09:55)
[2023-02-17] MEDS: tiZANidine 4 MG TAB PO SCH ×2 (10:13→20:28)
[2023-02-17] MEDS: MIRALAX *UNIT DOSE* 17GM PACKET PO SCH (13:21)
[2023-02-17] MEDS: SENOKOT S TAB PO SCH ×2 (13:21→20:28)
[2023-02-17] MEDS: GABAPENTIN 100 MG CAP PO SCH (13:25)
[2023-02-17] MEDS: ASCORBIC ACID 500 MG TAB PO SCH (13:25)
[2023-02-17] MEDS: MONTELUKAST 10 MG TAB PO SCH (13:25)
[2023-02-17] MEDS: FERROUS GLUCONATE 324 MG TAB PO SCH (13:26)
[2023-02-17] MEDS: CYANOCOBALAMIN 500 MCG TAB PO SCH (13:26)
[2023-02-17] MEDS: allopurinoL 100 MG TAB PO SCH (13:26)
[2023-02-17] MEDS: METOPROLOL TARTRATE 100MG TAB PO SCH (13:27)
[2023-02-17] MEDS ORDERED: LIDOCAINE 1% MDV 20ML VIAL As Ordered ONE (15:39)
[2023-02-17] MEDS: ceFAZolin SOD 1 GM in D5W MINI-BAG PLUS 50 ML IV SCH (17:21)
[2023-02-17] MEDS: ATORVASTATIN 20 MG TAB PO SCH (20:27)
[2023-02-17] MEDS: ACETAMINOPHEN TAB 650MG DOSE (2X325MG) PO PRN (20:27)
[2023-02-17] MEDS: TAMSULOSIN 0.4 MG CAP PO SCH (20:27)
[2023-02-18 05:13] VITALS: BP 170/95; TEMP 97.5; O2SAT 96
[2023-02-18 05:48] LABS: BASO # 0.1 10^3/uL (0.0-0.2); BASO % 0.5 % (0.0-1.0); EOS # 0.1 10^3/uL (0.0-0.5); EOS % 0.8 % (0.0-3.0); HEMATOCRIT 33.5 % (42.0-52.0); HEMOGLOBIN 10.9 g/dl (13.5-17.5); LYMPH % 9.9 % (24.0-44.0); MEAN CORPUSCULAR HEMOGLOBIN 30.4 pg (27.0-33.0); MEAN CORPUSCULAR HGB CONC 32.5 g/dl (32.0-36.5); MEAN CORPUSCULAR VOLUME 93.6 fl (80.0-96.0); MONO # 0.9 10^3/uL (0.0-0.8); MONO % 9.5 % (2.0-8.0); NEUTROPHILS # 7.4 10^3/uL (1.5-8.5); NEUTROPHILS % 75.7 % (36.0-66.0); PLATELET COUNT, AUTOMATED 154 10^3/uL (150-450); RED BLOOD COUNT 3.58 10^6/uL (4.30-6.10); WHITE BLOOD COUNT 9.8 10^3/uL (4.0-10.0)
[2023-02-18 06:19] LABS: CALCIUM LEVEL 8.6 MG/DL (8.3-10.6); CREATININE FOR GFR 4.03 MG/DL (0.70-1.30); GLOMERULAR FILTRATION RATE 15.4 (>42); MAGNESIUM LEVEL 2.8 MG/DL (1.8-2.4); POTASSIUM SERUM 3.9 MMOL/L (3.5-5.1)
[2023-02-18] MEDS: INSULIN LISPRO (NovoLOG) PER UNIT SC SCH ×4 (07:25→20:32)
[2023-02-18] MEDS: FERROUS GLUCONATE 324 MG TAB PO SCH (08:31)
[2023-02-18] MEDS: SUCROFERRIC OXYHYDROXIDE 500MG CHEW TAB (VELPHORO) PO SCH ×3 (08:31→17:10)
[2023-02-18] MEDS: METOPROLOL TARTRATE 100MG TAB PO SCH (08:34)
[2023-02-18] MEDS: MIRALAX *UNIT DOSE* 17GM PACKET PO SCH (08:34)
[2023-02-18] MEDS: FINASTERIDE 5MG TAB PO SCH (08:35)
[2023-02-18] MEDS: GABAPENTIN 100 MG CAP PO SCH (08:35)
[2023-02-18] MEDS: FLUoxetine 20MG CAP PO SCH (08:36)
[2023-02-18] MEDS: CYANOCOBALAMIN 500 MCG TAB PO SCH (08:36)
[2023-02-18] MEDS: SENOKOT S TAB PO SCH ×2 (08:36→20:33)
[2023-02-18] MEDS: MONTELUKAST 10 MG TAB PO SCH (08:36)
[2023-02-18] MEDS: allopurinoL 100 MG TAB PO SCH (08:36)
[2023-02-18] MEDS: ASCORBIC ACID 500 MG TAB PO SCH (08:36)
[2023-02-18] MEDS: tiZANidine 4 MG TAB PO SCH (08:37)
[2023-02-18] MEDS: HEPARIN SOD (PORCINE) 5000UNITS/ML 1ML VIAL/SYRINGE SC SCH ×2 (08:42→20:32)
[2023-02-18] MEDS: LEVEMIR (INSULIN DETEMIR) 1 UNITS/0.01ML SC SCH (08:43)
[2023-02-18] MEDS: LIDOCAINE 5% (LIDODERM) PATCH TD SCH (09:00)
[2023-02-18] MEDS: oxyCODONE 5MG TAB PO PRN (09:51)
[2023-02-18 14:00] VITALS: BP 144/50; TEMP 97.9; O2SAT 91
[2023-02-18] MEDS ORDERED: KETOROLAC 30 MG/ML 1ML VIAL IV ONE (14:00)
[2023-02-18] MEDS ORDERED: carisoprodoL 350 MG TAB PO ONE (14:25)
[2023-02-18] MEDS: ceFAZolin SOD 1 GM in D5W MINI-BAG PLUS 50 ML IV SCH (16:00)
[2023-02-18] MEDS: QUEtiapine FUMARATE 25 MG TAB PO SCH (17:10)
[2023-02-18 19:59] VITALS: BP 128/54; TEMP 97.9; O2SAT 94
[2023-02-18] MEDS ORDERED: guaiFENesin 200 MG TAB PO PRN (20:10)
[2023-02-18] MEDS: TAMSULOSIN 0.4 MG CAP PO SCH (20:32)
[2023-02-18] MEDS: ATORVASTATIN 20 MG TAB PO SCH (20:33)
[2023-02-18] MEDS ORDERED: BENZONATATE 100MG CAPSULE PO PRN (22:45)
[2023-02-18] MEDS ORDERED: RAMELTEON 8 MG TAB (ROZEREM) PO ONE (23:35)
[2023-02-19 05:34] VITALS: BP 172/65; TEMP 97.9; O2SAT 87
[2023-02-19] MEDS: HEPARIN SOD (PORCINE) 5000UNITS/ML 1ML VIAL/SYRINGE SC SCH ×2 (05:58→21:21)
[2023-02-19] MEDS: SUCROFERRIC OXYHYDROXIDE 500MG CHEW TAB (VELPHORO) PO SCH ×3 (05:59→17:56)
[2023-02-19] MEDS: LIDOCAINE 5% (LIDODERM) PATCH TD SCH (05:59)
[2023-02-19] MEDS: FINASTERIDE 5MG TAB PO SCH (05:59)
[2023-02-19] MEDS: MIRALAX *UNIT DOSE* 17GM PACKET PO SCH (05:59)
[2023-02-19] MEDS: GABAPENTIN 100 MG CAP PO SCH (06:00)
[2023-02-19] MEDS: allopurinoL 100 MG TAB PO SCH (06:00)
[2023-02-19] MEDS: MONTELUKAST 10 MG TAB PO SCH (06:00)
[2023-02-19] MEDS: SENOKOT S TAB PO SCH ×2 (06:00→21:21)
[2023-02-19] MEDS: CYANOCOBALAMIN 500 MCG TAB PO SCH (06:00)
[2023-02-19] MEDS: FERROUS GLUCONATE 324 MG TAB PO SCH (06:00)
[2023-02-19] MEDS: ASCORBIC ACID 500 MG TAB PO SCH (06:00)
[2023-02-19] MEDS: FLUoxetine 20MG CAP PO SCH (06:01)
[2023-02-19 06:08] LABS: HEMATOCRIT 27.3 % (42.0-52.0); MEAN CORPUSCULAR HEMOGLOBIN 30.6 pg (27.0-33.0); MEAN CORPUSCULAR VOLUME 92.9 fl (80.0-96.0); PLATELET COUNT, AUTOMATED 166 10^3/uL (150-450); RED BLOOD COUNT 2.94 10^6/uL (4.30-6.10)
[2023-02-19 06:42] LABS: CALCIUM LEVEL 7.8 MG/DL (8.3-10.6); CREATININE FOR GFR 4.98 MG/DL (0.70-1.30); GLOMERULAR FILTRATION RATE 12.1 (>42); MAGNESIUM LEVEL 2.4 MG/DL (1.8-2.4); POTASSIUM SERUM 4.6 MMOL/L (3.5-5.1)
[2023-02-19] MEDS ORDERED: HEPARIN 1,000UNITS/ML 10ML VIAL (FOR RADIOLOGY & DIALYSIS ONLY) IV PRN (07:15)
[2023-02-19] MEDS ORDERED: DARBEPOETIN 100MCG/0.5ML *DIALYSIS* SYRINGE IV SCH (07:15)
[2023-02-19] MEDS ORDERED: LIDOCAINE 1% SDV 5ML VIAL SC PRN (07:15)
[2023-02-19] MEDS ORDERED: HEPARIN 1,000UNITS/ML 10ML VIAL (FOR RADIOLOGY & DIALYSIS ONLY) XX SCH (07:15)
[2023-02-19] MEDS ORDERED: SODIUM CHLORIDE 0.9% 1000ML IV PRN (07:15)
[2023-02-19] MEDS ORDERED: ceFAZolin SOD 3 GM in D5W MINI-BAG PLUS 50 ML IV ONE (07:25)
[2023-02-19] MEDS: INSULIN LISPRO (NovoLOG) PER UNIT SC SCH ×4 (07:47→20:33)
[2023-02-19] MEDS: LEVEMIR (INSULIN DETEMIR) 1 UNITS/0.01ML SC SCH (07:48)
[2023-02-19] MEDS: METOPROLOL TARTRATE 100MG TAB PO SCH (07:51)
[2023-02-19 07:56] LABS: ATYPICAL LYMPH 1 % (0-5); EOSINOPHILS 2 % (0-3); HYPERSEGMENTED POLYS 2+; LYMPHOCYTES 11 % (16-44); METAMYELOCYTES 1 % (0-0); MONOCYTES 4 % (0-5); MYELOCYTES 1 % (0-0); NEUTROPHILS 79 % (28-66); PLATELET ESTIMATE NORMAL (NORMAL)
[2023-02-19] MEDS ORDERED: ceFAZolin SOD 1 GM in D5W MINI-BAG PLUS 50 ML IV ONE (10:00)
[2023-02-19] MEDS ORDERED: ceFAZolin SOD 2 GM in IV 1 EA IV ONE (10:00)
[2023-02-19] MEDS: ASPIRIN 81MG ENTERIC TABLET PO SCH (14:10)
[2023-02-19 14:15] VITALS: BP 136/66; TEMP 97.9; O2SAT 93
[2023-02-19] MEDS: QUEtiapine FUMARATE 25 MG TAB PO SCH (17:56)
[2023-02-19] MEDS: TAMSULOSIN 0.4 MG CAP PO SCH (21:21)
[2023-02-19] MEDS: ATORVASTATIN 20 MG TAB PO SCH (21:21)
[2023-02-19 22:00] VITALS: BP 165/63; TEMP 97.7; O2SAT 93
[2023-02-20] MEDS: ACETAMINOPHEN TAB 650MG DOSE (2X325MG) PO PRN ×2 (01:43→18:16)
[2023-02-20 06:00] VITALS: BP 162/79; TEMP 97.7; O2SAT 96
[2023-02-20 07:49] LABS: HEMATOCRIT 29.3 % (42.0-52.0); HEMOGLOBIN 9.4 g/dl (13.5-17.5); MEAN CORPUSCULAR HEMOGLOBIN 30.4 pg (27.0-33.0); MEAN CORPUSCULAR HGB CONC 32.1 g/dl (32.0-36.5); MEAN CORPUSCULAR VOLUME 94.8 fl (80.0-96.0); PLATELET COUNT, AUTOMATED 211 10^3/uL (150-450); RED BLOOD COUNT 3.09 10^6/uL (4.30-6.10); WHITE BLOOD COUNT 9.9 10^3/uL (4.0-10.0)
[2023-02-20 08:02] LABS: CALCIUM LEVEL 8.3 MG/DL (8.3-10.6); CREATININE FOR GFR 3.85 MG/DL (0.70-1.30); GLOMERULAR FILTRATION RATE 16.3 (>42); MAGNESIUM LEVEL 2.3 MG/DL (1.8-2.4); POTASSIUM SERUM 4.5 MMOL/L (3.5-5.1)
[2023-02-20 08:26] LABS: ATYPICAL LYMPH 5 % (0-5); LYMPHOCYTES 8 % (16-44); METAMYELOCYTES 1 % (0-0); MONOCYTES 8 % (0-5); NEUTROPHILS 76 % (28-66); PLATELET ESTIMATE NORMAL (NORMAL)
[2023-02-20 08:27] LABS: POLYCHROMASIA 1+
[2023-02-20] MEDS: HEPARIN SOD (PORCINE) 5000UNITS/ML 1ML VIAL/SYRINGE SC SCH ×2 (08:29→21:40)
[2023-02-20] MEDS: INSULIN LISPRO (NovoLOG) PER UNIT SC SCH ×4 (08:31→21:00)
[2023-02-20] MEDS: MIRALAX *UNIT DOSE* 17GM PACKET PO SCH (08:32)
[2023-02-20] MEDS: SUCROFERRIC OXYHYDROXIDE 500MG CHEW TAB (VELPHORO) PO SCH ×3 (08:32→18:00)
[2023-02-20] MEDS: LEVEMIR (INSULIN DETEMIR) 1 UNITS/0.01ML SC SCH (08:32)
[2023-02-20] MEDS: ASPIRIN 81MG ENTERIC TABLET PO SCH (08:37)
[2023-02-20] MEDS: MONTELUKAST 10 MG TAB PO SCH (08:37)
[2023-02-20] MEDS: SENOKOT S TAB PO SCH ×2 (08:37→21:39)
[2023-02-20] MEDS: ASCORBIC ACID 500 MG TAB PO SCH (08:37)
[2023-02-20] MEDS: allopurinoL 100 MG TAB PO SCH (08:38)
[2023-02-20] MEDS: FLUoxetine 20MG CAP PO SCH (08:38)
[2023-02-20] MEDS: METOPROLOL TARTRATE 100MG TAB PO SCH (08:38)
[2023-02-20] MEDS: FERROUS GLUCONATE 324 MG TAB PO SCH (08:38)
[2023-02-20] MEDS: CYANOCOBALAMIN 500 MCG TAB PO SCH (08:38)
[2023-02-20] MEDS: FINASTERIDE 5MG TAB PO SCH (08:38)
[2023-02-20] MEDS: GABAPENTIN 100 MG CAP PO SCH (08:38)
[2023-02-20] MEDS: LIDOCAINE 5% (LIDODERM) PATCH TD SCH (08:39)
[2023-02-20] MEDS: QUEtiapine FUMARATE 25 MG TAB PO SCH (18:08)
[2023-02-20] MEDS: ATORVASTATIN 20 MG TAB PO SCH (21:39)
[2023-02-20] MEDS: TAMSULOSIN 0.4 MG CAP PO SCH (21:39)
[2023-02-20 22:00] VITALS: BP 130/56; TEMP 97.5; O2SAT 94
[2023-02-21] MEDS: oxyCODONE 5MG TAB PO PRN (02:38)
[2023-02-21 06:00] VITALS: BP 136/64; TEMP 97.6; O2SAT 93
[2023-02-21] MEDS: ACETAMINOPHEN TAB 650MG DOSE (2X325MG) PO PRN ×2 (06:09→23:42)
[2023-02-21] MEDS: HEPARIN SOD (PORCINE) 5000UNITS/ML 1ML VIAL/SYRINGE SC SCH ×2 (08:23→20:17)
[2023-02-21] MEDS: INSULIN LISPRO (NovoLOG) PER UNIT SC SCH ×4 (08:23→20:17)
[2023-02-21] MEDS: LEVEMIR (INSULIN DETEMIR) 1 UNITS/0.01ML SC SCH (08:24)
[2023-02-21] MEDS: SUCROFERRIC OXYHYDROXIDE 500MG CHEW TAB (VELPHORO) PO SCH ×3 (08:24→17:26)
[2023-02-21] MEDS ORDERED: BISACODYL 10MG SUPP PR ONE ×2 (08:25→13:00)
[2023-02-21] MEDS: FLUoxetine 20MG CAP PO SCH (08:30)
[2023-02-21] MEDS: ASPIRIN 81MG ENTERIC TABLET PO SCH (08:30)
[2023-02-21] MEDS: CYANOCOBALAMIN 500 MCG TAB PO SCH (08:31)
[2023-02-21] MEDS: FINASTERIDE 5MG TAB PO SCH (08:31)
[2023-02-21] MEDS: GABAPENTIN 100 MG CAP PO SCH (08:31)
[2023-02-21] MEDS: ASCORBIC ACID 500 MG TAB PO SCH (08:31)
[2023-02-21] MEDS: SENOKOT S TAB PO SCH ×2 (08:31→20:16)
[2023-02-21] MEDS: allopurinoL 100 MG TAB PO SCH (08:31)
[2023-02-21] MEDS: MONTELUKAST 10 MG TAB PO SCH (08:32)
[2023-02-21] MEDS: METOPROLOL TARTRATE 100MG TAB PO SCH (08:34)
[2023-02-21] MEDS: MIRALAX *UNIT DOSE* 17GM PACKET PO SCH (08:34)
[2023-02-21] MEDS: LIDOCAINE 5% (LIDODERM) PATCH TD SCH (08:35)
[2023-02-21 14:00] VITALS: BP 164/54; TEMP 98.1; O2SAT 95
[2023-02-21] MEDS: QUEtiapine FUMARATE 25 MG TAB PO SCH (17:26)
[2023-02-21] MEDS: TAMSULOSIN 0.4 MG CAP PO SCH (20:16)
[2023-02-21] MEDS: ATORVASTATIN 20 MG TAB PO SCH (20:16)
[2023-02-21 22:00] VITALS: BP 158/62; TEMP 97.6; O2SAT 94
[2023-02-22 06:00] VITALS: BP 143/85; TEMP 97.7; O2SAT 96
[2023-02-22] MEDS ORDERED: SODIUM CHLORIDE 0.9% 1000ML IV PRN (06:00)
[2023-02-22] MEDS ORDERED: HEPARIN 1,000UNITS/ML 10ML VIAL (FOR RADIOLOGY & DIALYSIS ONLY) IV PRN (06:00)
[2023-02-22] MEDS ORDERED: HEPARIN 1,000UNITS/ML 10ML VIAL (FOR RADIOLOGY & DIALYSIS ONLY) XX SCH (06:00)
[2023-02-22] MEDS: oxyCODONE 5MG TAB PO PRN (06:22)
[2023-02-22] MEDS: FINASTERIDE 5MG TAB PO SCH (06:23)
[2023-02-22] MEDS: FLUoxetine 20MG CAP PO SCH (06:23)
[2023-02-22] MEDS: GABAPENTIN 100 MG CAP PO SCH (06:23)
[2023-02-22] MEDS: SENOKOT S TAB PO SCH ×2 (06:23→21:47)
[2023-02-22] MEDS: ASCORBIC ACID 500 MG TAB PO SCH (06:23)
[2023-02-22] MEDS: CYANOCOBALAMIN 500 MCG TAB PO SCH (06:24)
[2023-02-22] MEDS: ASPIRIN 81MG ENTERIC TABLET PO SCH (06:24)
[2023-02-22] MEDS: MONTELUKAST 10 MG TAB PO SCH (06:24)
[2023-02-22] MEDS: MIRALAX *UNIT DOSE* 17GM PACKET PO SCH (06:24)
[2023-02-22] MEDS: allopurinoL 100 MG TAB PO SCH (06:24)
[2023-02-22] MEDS: HEPARIN SOD (PORCINE) 5000UNITS/ML 1ML VIAL/SYRINGE SC SCH ×2 (06:26→21:47)
[2023-02-22] MEDS: SUCROFERRIC OXYHYDROXIDE 500MG CHEW TAB (VELPHORO) PO SCH ×3 (07:26→17:17)
[2023-02-22 07:29] LABS: BASO % 0.2 % (0.0-1.0); EOS # 0.3 10^3/uL (0.0-0.5); EOS % 2.3 % (0.0-3.0); HEMATOCRIT 31.2 % (42.0-52.0); HEMOGLOBIN 9.7 g/dl (13.5-17.5); LYMPH # 1.2 10^3/uL (1.5-5.0); LYMPH % 9.1 % (24.0-44.0); MEAN CORPUSCULAR HEMOGLOBIN 30.1 pg (27.0-33.0); MEAN CORPUSCULAR HGB CONC 31.1 g/dl (32.0-36.5); MEAN CORPUSCULAR VOLUME 96.9 fl (80.0-96.0); MONO % 7.8 % (2.0-8.0); NEUTROPHILS # 10.2 10^3/uL (1.5-8.5); NEUTROPHILS % 77.1 % (36.0-66.0); PLATELET COUNT, AUTOMATED 295 10^3/uL (150-450); RED BLOOD COUNT 3.22 10^6/uL (4.30-6.10); WHITE BLOOD COUNT 13.2 10^3/uL (4.0-10.0)
[2023-02-22] MEDS: INSULIN LISPRO (NovoLOG) PER UNIT SC SCH ×4 (07:30→21:00)
[2023-02-22] MEDS: LIDOCAINE 5% (LIDODERM) PATCH TD SCH (07:48)
[2023-02-22] MEDS: LEVEMIR (INSULIN DETEMIR) 1 UNITS/0.01ML SC SCH (07:48)
[2023-02-22] MEDS: METOPROLOL TARTRATE 100MG TAB PO SCH (07:49)
[2023-02-22 08:11] LABS: CALCIUM LEVEL 8.3 MG/DL (8.3-10.6); CREATININE FOR GFR 5.44 MG/DL (0.70-1.30); GLOMERULAR FILTRATION RATE 10.9 (>42); POTASSIUM SERUM 5.4 MMOL/L (3.5-5.1)
[2023-02-22 08:33] LABS: PROCALCITONIN 1.62 ng/ml
[2023-02-22] MEDS ORDERED: ceFAZolin SOD 2 GM in IV 1 EA IV ONE (10:00)
[2023-02-22] MEDS: ACETAMINOPHEN TAB 650MG DOSE (2X325MG) PO PRN ×2 (12:05→21:48)
[2023-02-22 13:17] LABS: C REACTIVE PROTEIN QUANTITATIV 16.9 MG/DL (<1.0)
[2023-02-22 14:00] VITALS: BP 124/56; TEMP 97.7; O2SAT 93
[2023-02-22] MEDS: QUEtiapine FUMARATE 25 MG TAB PO SCH (17:17)
[2023-02-22 21:42] VITALS: BP 131/48; TEMP 97.9; O2SAT 96
[2023-02-22] MEDS: TAMSULOSIN 0.4 MG CAP PO SCH (21:47)
[2023-02-22] MEDS: ATORVASTATIN 20 MG TAB PO SCH (21:48)
[2023-02-23] MEDS: ACETAMINOPHEN TAB 650MG DOSE (2X325MG) PO PRN ×3 (02:14→21:27)
[2023-02-23 06:00] VITALS: BP 144/53; TEMP 98.1; O2SAT 96
[2023-02-23] MEDS: INSULIN LISPRO (NovoLOG) PER UNIT SC SCH ×4 (07:30→21:00)
[2023-02-23] MEDS: SUCROFERRIC OXYHYDROXIDE 500MG CHEW TAB (VELPHORO) PO SCH ×3 (08:00→17:08)
[2023-02-23] MEDS: LEVEMIR (INSULIN DETEMIR) 1 UNITS/0.01ML SC SCH (08:09)
[2023-02-23] MEDS: HEPARIN SOD (PORCINE) 5000UNITS/ML 1ML VIAL/SYRINGE SC SCH ×2 (08:09→21:27)
[2023-02-23] MEDS: LIDOCAINE 5% (LIDODERM) PATCH TD SCH (08:09)
[2023-02-23] MEDS: allopurinoL 100 MG TAB PO SCH (08:10)
[2023-02-23] MEDS: CYANOCOBALAMIN 500 MCG TAB PO SCH (08:10)
[2023-02-23] MEDS: FINASTERIDE 5MG TAB PO SCH (08:10)
[2023-02-23] MEDS: METOPROLOL TARTRATE 100MG TAB PO SCH (08:10)
[2023-02-23] MEDS: MONTELUKAST 10 MG TAB PO SCH (08:11)
[2023-02-23] MEDS: ASCORBIC ACID 500 MG TAB PO SCH (08:11)
[2023-02-23] MEDS: ASPIRIN 81MG ENTERIC TABLET PO SCH (08:11)
[2023-02-23] MEDS: FLUoxetine 20MG CAP PO SCH (08:11)
[2023-02-23] MEDS: GABAPENTIN 100 MG CAP PO SCH (08:11)
[2023-02-23] MEDS: SENOKOT S TAB PO SCH ×2 (08:12→21:26)
[2023-02-23] MEDS: MIRALAX *UNIT DOSE* 17GM PACKET PO SCH (08:12)
[2023-02-23 14:00] VITALS: BP 123/49; TEMP 97.3; O2SAT 95
[2023-02-23] MEDS: QUEtiapine FUMARATE 25 MG TAB PO SCH (17:07)
[2023-02-23 20:00] VITALS: BP 161/56; TEMP 98.7; O2SAT 97
[2023-02-23] MEDS: TAMSULOSIN 0.4 MG CAP PO SCH (21:27)
[2023-02-23] MEDS: ATORVASTATIN 20 MG TAB PO SCH (21:27)
[2023-02-23] MEDS ORDERED: ACETAMINOPH W/CODEINE #3 TAB UD PO PRN (22:00)
[2023-02-24] MEDS: LIDOCAINE 5% (LIDODERM) PATCH TD SCH (05:54)
[2023-02-24] MEDS: HEPARIN SOD (PORCINE) 5000UNITS/ML 1ML VIAL/SYRINGE SC SCH (05:54)
[2023-02-24] MEDS: MIRALAX *UNIT DOSE* 17GM PACKET PO SCH (05:54)
[2023-02-24] MEDS: MONTELUKAST 10 MG TAB PO SCH (05:55)
[2023-02-24] MEDS: ASPIRIN 81MG ENTERIC TABLET PO SCH (05:55)
[2023-02-24] MEDS: allopurinoL 100 MG TAB PO SCH (05:55)
[2023-02-24] MEDS: FLUoxetine 20MG CAP PO SCH (05:55)
[2023-02-24] MEDS: SENOKOT S TAB PO SCH (05:55)
[2023-02-24] MEDS: FINASTERIDE 5MG TAB PO SCH (05:56)
[2023-02-24] MEDS: GABAPENTIN 100 MG CAP PO SCH (05:56)
[2023-02-24] MEDS: CYANOCOBALAMIN 500 MCG TAB PO SCH (05:56)
[2023-02-24] MEDS: ASCORBIC ACID 500 MG TAB PO SCH (05:58)
[2023-02-24 06:00] VITALS: BP 161/86; TEMP 98.1; O2SAT 91
[2023-02-24] MEDS ORDERED: SODIUM CHLORIDE 0.9% 1000ML IV PRN (06:00)
[2023-02-24] MEDS ORDERED: HEPARIN 1,000UNITS/ML 10ML VIAL (FOR RADIOLOGY & DIALYSIS ONLY) XX SCH (06:00)
[2023-02-24] MEDS ORDERED: HEPARIN 1,000UNITS/ML 10ML VIAL (FOR RADIOLOGY & DIALYSIS ONLY) IV PRN (06:00)
[2023-02-24 06:01] VITALS: BP 161/86
[2023-02-24] MEDS: METOPROLOL TARTRATE 100MG TAB PO SCH (06:01)
[2023-02-24] MEDS: ACETAMINOPHEN TAB 650MG DOSE (2X325MG) PO PRN ×2 (06:13→12:10)
[2023-02-24] MEDS: SUCROFERRIC OXYHYDROXIDE 500MG CHEW TAB (VELPHORO) PO SCH ×3 (06:52→13:58)
[2023-02-24] MEDS: INSULIN LISPRO (NovoLOG) PER UNIT SC SCH ×2 (06:56→14:08)
[2023-02-24 07:32] LABS: BASO % 0.3 % (0.0-1.0); EOS # 0.3 10^3/uL (0.0-0.5); EOS % 2.5 % (0.0-3.0); HEMATOCRIT 27.4 % (42.0-52.0); HEMOGLOBIN 8.6 g/dl (13.5-17.5); LYMPH # 0.9 10^3/uL (1.5-5.0); LYMPH % 7.4 % (24.0-44.0); MEAN CORPUSCULAR HGB CONC 31.4 g/dl (32.0-36.5); MEAN CORPUSCULAR VOLUME 95.5 fl (80.0-96.0); MONO # 0.8 10^3/uL (0.0-0.8); MONO % 7.3 % (2.0-8.0); NEUTROPHILS # 9.3 10^3/uL (1.5-8.5); PLATELET COUNT, AUTOMATED 278 10^3/uL (150-450); RED BLOOD COUNT 2.87 10^6/uL (4.30-6.10); WHITE BLOOD COUNT 11.4 10^3/uL (4.0-10.0)
[2023-02-24] MEDS: LEVEMIR (INSULIN DETEMIR) 1 UNITS/0.01ML SC SCH (07:46)
[2023-02-24 08:10] LABS: ALBUMIN 2.3 G/DL (3.2-5.2); BILIRUBIN,TOTAL 0.3 MG/DL (0.3-1.2); CREATININE FOR GFR 5.09 MG/DL (0.70-1.30); GLOMERULAR FILTRATION RATE 11.8 (>42); POTASSIUM SERUM 5.6 MMOL/L (3.5-5.1); TOTAL PROTEIN 5.6 G/DL (5.7-8.2)
[2023-02-24] MEDS: DARBEPOETIN 100MCG/0.5ML *DIALYSIS* SYRINGE IV SCH (10:26)
[2023-02-24] MEDS ORDERED: ceFAZolin SOD 2 GM in IV 1 EA IV ONE (10:30)
[2023-02-24 14:00] VITALS: BP 128/51; TEMP 97.5; O2SAT 97
== END 2023-02-24 18:00 | disposition home or self-care (01) | DRG 871 ==
LOC: M ED 02:40 → EDBD 02:40 → M ED INP 07:30 → M MSPAV 16:23 → M PCU 18:19 → M MS5PR 02-17 15:00
PROVIDERS: ADMIT Student in an Organized Health Care Education/Training Program; ATTEND Internal Medicine
PROC: 0SB23ZX Excision of Lumbar Vertebral Disc, Percutaneous Approach, Diagnostic (ICD-10-PCS; principal; 2023-02-17 13:00)
DX: A41.01 Sepsis due to Methicillin susceptible Staphylococcus aureus (principal); N18.6 End stage renal disease; G93.41 Metabolic encephalopathy; M46.26 Osteomyelitis of vertebra, lumbar region; I13.2 Hypertensive heart and chronic kidney disease with heart failure and with stage 5 chronic kidney disease, or end stage renal disease; N12 Tubulo-interstitial nephritis, not specified as acute or chronic; M46.46 Discitis, unspecified, lumbar region; J44.9 Chronic obstructive pulmonary disease, unspecified; K21.9 Gastro-esophageal reflux disease without esophagitis; E11.22 Type 2 diabetes mellitus with diabetic chronic kidney disease; E66.9 Obesity, unspecified; G47.33 Obstructive sleep apnea (adult) (pediatric); I25.10 Atherosclerotic heart disease of native coronary artery without angina pectoris; Z95.2 Presence of prosthetic heart valve; N40.0 Benign prostatic hyperplasia without lower urinary tract symptoms; Z99.2 Dependence on renal dialysis; E03.9 Hypothyroidism, unspecified; Z91.040 Latex allergy status; Z88.8 Allergy status to other drugs, medicaments and biological substances; Z79.82 Long term (current) use of aspirin; Z79.899 Other long term (current) drug therapy; Z79.4 Long term (current) use of insulin; E78.00 Pure hypercholesterolemia, unspecified; M10.9 Gout, unspecified; Z87.891 Personal history of nicotine dependence; Z79.52 Long term (current) use of systemic steroids; K44.9 Diaphragmatic hernia without obstruction or gangrene; I50.9 Heart failure, unspecified; D63.1 Anemia in chronic kidney disease

== ENCOUNTER 2023-06-06 18:39 | Emergency (ER) | payer MEDICARE ==
[~2023-06-06] VITALS: Ht 185.4 cm; Wt 116.8 kg
[~2023-06-06 18:39] MED LIST changes: +ASPI-161 PO; +LIDO30CR18 TOP; -OXYB5TAB10 PO; +OXYB5TAB11 PO; +PRED10TA2 PO; +VELP5CHW PO
[2023-06-06] MEDS ORDERED: LORazepam 2 MG/ML 1ML VIAL IV STA ×2 (19:13→22:32)
[2023-06-06] MEDS ORDERED: FUROSEMIDE 100MG/10ML VIAL IV ONE (19:15)
[2023-06-06 19:16] LABS: ABG BASE EXCESS -2.7 (-2.0-2.0); ABG HCO3 21.8 MMOL/L (22.0-26.0); ABG O2 SATURATION 96.6 % (95.0-99.0); ABG PARTIAL PRESSURE CO2 36.9 mmHg (35.0-45.0); ABG PARTIAL PRESSURE O2 92.4 mmHg (75.0-100.0); ABG STANDARD HCO3 22.2 MMOL/L. (22.0-26.0); ABG TOTAL CO2 22.9 MMOL/L (23.0-31.0); ABG pH (ARTERIAL) 7.389 UNITS (7.350-7.450)
[2023-06-06 19:42] LABS: BASO % 0.2 % (0.0-1.0); EOS # 0.3 10^3/uL (0.0-0.5); HEMATOCRIT 35.2 % (42.0-52.0); HEMOGLOBIN 11.3 g/dl (13.5-17.5); LYMPH # 1.5 10^3/uL (1.5-5.0); LYMPH % 8.9 % (24.0-44.0); MEAN CORPUSCULAR HEMOGLOBIN 30.1 pg (27.0-33.0); MEAN CORPUSCULAR HGB CONC 32.1 g/dl (32.0-36.5); MEAN CORPUSCULAR VOLUME 93.9 fl (80.0-96.0); MONO # 0.8 10^3/uL (0.0-0.8); MONO % 4.6 % (2.0-8.0); NEUTROPHILS # 13.7 10^3/uL (1.5-8.5); NEUTROPHILS % 83.4 % (36.0-66.0); PLATELET COUNT, AUTOMATED 187 10^3/uL (150-450); RED BLOOD COUNT 3.75 10^6/uL (4.30-6.10); WHITE BLOOD COUNT 16.4 10^3/uL (4.0-10.0)
[2023-06-06 19:59] LABS: CREATININE FOR GFR 5.55 MG/DL (0.70-1.30); GLOMERULAR FILTRATION RATE 10.7 (>42); POTASSIUM SERUM 5.1 MMOL/L (3.5-5.1)
[2023-06-06 20:03] LABS: PROTHROMBIN TIME 12.9 SECONDS (12.5-14.5)
[2023-06-06 20:04] LABS: PARTIAL THROMBOPLASTIN TIME 28.5 SECONDS (24.8-34.2)
[2023-06-06] MEDS ORDERED: HEPARIN DRIP 25,000 UNITS in IV 1 EA IV SCH (22:05)
[2023-06-06] MEDS ORDERED: HEPARIN SOD (PORCINE) 5000UNITS/ML 1ML VIAL/SYRINGE IV ONE (22:05)
[2023-06-06 22:45] VITALS: O2SAT 95
[2023-06-06 22:50] VITALS: BP 187/69
[2023-06-06 23:03] VITALS: TEMP 98.5
== END 2023-06-06 23:07 | disposition short-term general hospital (02) ==
LOC: M ED 18:39
DX: I21.4 Non-ST elevation (NSTEMI) myocardial infarction (principal); I50.21 Acute systolic (congestive) heart failure; N18.6 End stage renal disease; R00.0 Tachycardia, unspecified; I10 Essential (primary) hypertension; E78.5 Hyperlipidemia, unspecified; J44.9 Chronic obstructive pulmonary disease, unspecified; Z86.79 Personal history of other diseases of the circulatory system; Z87.891 Personal history of nicotine dependence; Z91.040 Latex allergy status; Z88.1 Allergy status to other antibiotic agents; Z88.6 Allergy status to analgesic agent; Z79.52 Long term (current) use of systemic steroids; Z79.02 Long term (current) use of antithrombotics/antiplatelets; Z79.82 Long term (current) use of aspirin; Z79.899 Other long term (current) drug therapy
CPT/HCPCS: 36600; 51702; 71045; 80048; 82803; 83605; 84484; 85025; 85610; 85730; 87040; 87486; 87581; 87633; 87798; 93005; 93041; 94660; 94760; 96365; 96375; 99291; J1940; J2060